=== PATIENT | female | born 1940 | race Caucasian/White ===

== ENCOUNTER 2017-11-08 10:10 | Inpatient (IN) | payer OTHER ==
[~2017-11-08] VITALS: Ht 167.6 cm; Wt 83.9 kg
[2017-11-08 10:13] VITALS: BP 138/62
[2017-11-08] MEDS ORDERED: RIVA15TA1 PO (10:40)
[2017-11-08] MEDS ORDERED: ROPI0.5T PO (10:40)
[2017-11-08] MEDS ORDERED: POTA10TE30 PO (10:40)
[2017-11-08] MEDS ORDERED: ALLO100T21 PO (10:40)
[2017-11-08] MEDS ORDERED: CALC500C17 PO (10:40)
[2017-11-08] MEDS ORDERED: INSU100S22 SC (10:40)
[2017-11-08] MEDS ORDERED: FERR325E14 PO (10:40)
[2017-11-08] MEDS ORDERED: FURO-570 PO (10:40)
[2017-11-08] MEDS ORDERED: MAGN400S60 PO (10:40)
[2017-11-08] MEDS ORDERED: BISA5ECT43 RC (10:40)
[2017-11-08] MEDS ORDERED: MELA5TAB5 PO (10:40)
[2017-11-08] MEDS ORDERED: LISI10TA11 PO (10:40)
[2017-11-08] MEDS ORDERED: LINA5TAB PO (10:40)
[2017-11-08] MEDS ORDERED: ATOR10TA PO (10:40)
[2017-11-08] MEDS ORDERED: ACET-2619 PO (10:40)
[2017-11-08] MEDS ORDERED: METO25TE2 PO (10:40)
[2017-11-08] MEDS ORDERED: CALC-53 PO (10:40)
[2017-11-08] MEDS ORDERED: SYN.05 PO (10:40)
[2017-11-08 10:49] LABS: BASOPHILS % (AUTO) 0.4 % (0.0-2.0); EOSINOPHILS # (AUTO) 0.2 K/uL (0-0.4); EOSINOPHILS % (AUTO) 2.3 % (0.0-4.0); HEMOGLOBIN 12.4 g/dL (12.0-16.0); LYMPHOCYTES # (AUTO) 1.2 K/uL (2.5-16.5); LYMPHOCYTES % (AUTO) 13.3 % (20.5-51.1); MEAN CORPUSCULAR HEMOGLOBIN 30 pg (27-31); MEAN CORPUSCULAR HGB CONC 33 g/dL (33-37); MONOCYTES # (AUTO) 0.6 K/uL (0.8-1.0); MONOCYTES % (AUTO) 6.8 % (1.7-9.3); NEUTROPHILS # (AUTO) 7.1 K/uL (1.8-7.7); NEUTROPHILS % (AUTO) 77.2 % (42.2-75.2); PLATELET COUNT (AUTO) 181 K/uL (140-450); RED BLOOD CELL COUNT(AUTO) 4.17 MIL/uL (4.20-5.40); RED CELL DISTRIBUTION WIDTH 15.4 % (11.6-13.7); WHITE BLOOD COUNT (AUTO) 9.2 K/uL (4.8-10.8)
[2017-11-08 11:05] LABS: PROTHROMBIN TIME 13.3 secs (10.8-13.4)
[2017-11-08 11:06] LABS: ANION GAP 5.9 (8-16); CARBON DIOXIDE 29.7 mmol/L (21-32); CHLORIDE 101 mmol/L (98-107); CREATININE 1.7 mg/dL (0.6-1.3); GLUCOSE 163 mg/dL (74-106); POTASSIUM 3.6 mmol/L (3.5-5.1); SODIUM SERUM 133 mmol/L (136-145); UREA NITROGEN, BLOOD 40 mg/dL (7-18)
[2017-11-08 11:16] LABS: ALBUMIN 3.5 g/dL (3.4-5.0); ASPARTATE AMINOTRANSFERASE 24 U/L (15-37); TOTAL BILIRUBIN 0.7 mg/dL (0.0-1.0)
[2017-11-08] MEDS ORDERED: cefTRIAXone 1,000 MG VIAL ONE (12:39)
[2017-11-08 13:45] LABS: APPEARANCE,URINE HAZY (CLEAR); BILIRUBIN,URINE NEGATIVE (NEGATIVE); BLOOD, URINE TRACE-L (NEGATIVE); COLOR,URINE YELLOW (YELLOW); LEUKOCYTE ESTERASE ,URINE 1+ (NEGATIVE); NITRITE, URINE POSITIVE (NEGATIVE); UGLUCOSE NEGATIVE (NEGATIVE)
[2017-11-08] MEDS: POTASSIUM CHL 20 MEQ/NACL 0.9% 1,000 ML IV SCH (13:45)
[2017-11-08 13:59] LABS: RBC,URINE 0-5 (RARE) /HPF (0-5); WBC,URINE 16-25 (MOD) /HPF (0-5)
[2017-11-08] MEDS ORDERED: FAMOTIDINE 20 MG TAB PO SCH (13:59)
[2017-11-08] MEDS ORDERED: DEXTROSE 50% 50 ML SYR IVP PRN (16:10)
[2017-11-08] MEDS: BLOOD GLUCOSE MONITORING 1 DEV DEV FS SCH ×2 (16:30→21:48)
[2017-11-08 18:45] VITALS: BP 133/62
[2017-11-08 20:00] VITALS: BP 122/69
[2017-11-08] MEDS ORDERED: INSULIN GLARGINE HUM REC ANLOG U SCH (21:00)
[2017-11-08] MEDS ORDERED: NON-FORMULARY ITEM (Melatonin (Melatonin) 3 MG) PO SCH (21:00)
[2017-11-08] MEDS ORDERED: INSULIN LANTUS 100 UNITS/ML 10 ML VIAL SUBQ SCH (21:00)
[2017-11-08] MEDS: METOPROLOL 25 MG TAB PO SCH (21:30)
[2017-11-08] MEDS: rOPINIRole 1 MG TAB PO SCH (21:30)
[2017-11-08] MEDS: ACETAMINOPHEN 325 MG TAB PO PRN (21:31)
[2017-11-08] MEDS ORDERED: ZOLPIDEM 5 MG TAB PO ONE (23:10)
[2017-11-09] VITALS: BP 138/70
[2017-11-09] MEDS: POTASSIUM CHL 20 MEQ/NACL 0.9% 1,000 ML IV SCH ×3 (02:15→20:42)
[2017-11-09 04:00] VITALS: BP 126/60
[2017-11-09] MEDS: LEVOTHYROXINE 0.05 MG TAB PO SCH (06:00)
[2017-11-09] MEDS: BLOOD GLUCOSE MONITORING 1 DEV DEV FS SCH ×4 (06:02→20:39)
[2017-11-09] MEDS: INSULIN LISPRO SLIDING SCALE 100 UNITS/ML VIAL SUBQ PRN ×4 (06:24→21:05)
[2017-11-09 07:52] VITALS: BP 130/64
[2017-11-09] MEDS: ATORVASTATIN 20 MG TAB PO SCH (08:20)
[2017-11-09] MEDS: LISINOPRIL 10 MG TAB PO SCH (08:20)
[2017-11-09] MEDS: METOPROLOL 25 MG TAB PO SCH ×2 (08:21→20:40)
[2017-11-09] MEDS: ALLOPURINOL 100 MG TAB PO SCH (08:22)
[2017-11-09] MEDS: RIVAROXABAN 15 MG TAB PO SCH (08:22)
[2017-11-09 08:43] LABS: BASOPHILS % (AUTO) 0.3 % (0.0-2.0); EOSINOPHILS # (AUTO) 0.3 K/uL (0-0.4); EOSINOPHILS % (AUTO) 3.4 % (0.0-4.0); HEMATOCRIT 38.4 % (36-48); HEMOGLOBIN 12.6 g/dL (12.0-16.0); LYMPHOCYTES # (AUTO) 1.5 K/uL (2.5-16.5); LYMPHOCYTES % (AUTO) 19.4 % (20.5-51.1); MEAN CORPUSCULAR HEMOGLOBIN 30 pg (27-31); MEAN CORPUSCULAR HGB CONC 33 g/dL (33-37); MEAN CORPUSCULAR VOLUME 91.7 fL (80-94); MONOCYTES # (AUTO) 0.6 K/uL (0.8-1.0); MONOCYTES % (AUTO) 7.1 % (1.7-9.3); NEUTROPHILS # (AUTO) 5.4 K/uL (1.8-7.7); NEUTROPHILS % (AUTO) 69.8 % (42.2-75.2); PLATELET COUNT (AUTO) 191 K/uL (140-450); RED BLOOD CELL COUNT(AUTO) 4.18 MIL/uL (4.20-5.40); RED CELL DISTRIBUTION WIDTH 15.2 % (11.6-13.7); WHITE BLOOD COUNT (AUTO) 7.7 K/uL (4.8-10.8)
[2017-11-09] MEDS ORDERED: NON-FORMULARY ITEM (Linagliptin (Tradjenta) 5 MG) PO SCH (09:00)
[2017-11-09 09:30] LABS: ALBUMIN 3.5 g/dL (3.4-5.0); ANION GAP 10.6 (8-16); ASPARTATE AMINOTRANSFERASE 25 U/L (15-37); CARBON DIOXIDE 31.3 mmol/L (21-32); CHLORIDE 105 mmol/L (98-107); CREATININE 1.5 mg/dL (0.6-1.3); GLUCOSE 140 mg/dL (74-106); POTASSIUM 3.9 mmol/L (3.5-5.1); SODIUM SERUM 143 mmol/L (136-145); TOTAL BILIRUBIN 0.7 mg/dL (0.0-1.0); UREA NITROGEN, BLOOD 38 mg/dL (7-18)
[2017-11-09 11:57] VITALS: BP 115/64
[2017-11-09 16:00] VITALS: BP 138/77
[2017-11-09 20:00] VITALS: BP 144/66
[2017-11-09] MEDS: rOPINIRole 1 MG TAB PO SCH (20:41)
[2017-11-09] MEDS: INSULIN LANTUS 100 UNITS/ML 10 ML VIAL SUBQ SCH (20:43)
[2017-11-09] MEDS: ZOLPIDEM 5 MG TAB PO PRN (21:38)
[2017-11-09] MEDS: ACETAMINOPHEN 325 MG TAB PO PRN (21:41)
[2017-11-10] VITALS: BP 127/53
[2017-11-10 04:00] VITALS: BP 142/61
[2017-11-10] MEDS: BLOOD GLUCOSE MONITORING 1 DEV DEV FS SCH ×4 (05:51→20:26)
[2017-11-10] MEDS: LEVOTHYROXINE 0.05 MG TAB PO SCH (05:52)
[2017-11-10] MEDS: ACETAMINOPHEN 325 MG TAB PO PRN ×2 (05:52→20:25)
[2017-11-10] MEDS: INSULIN LISPRO SLIDING SCALE 100 UNITS/ML VIAL SUBQ PRN ×4 (06:01→20:32)
[2017-11-10 08:00] VITALS: BP 186/69
[2017-11-10] MEDS: RIVAROXABAN 15 MG TAB PO SCH (08:28)
[2017-11-10] MEDS: ATORVASTATIN 20 MG TAB PO SCH (08:29)
[2017-11-10] MEDS: LISINOPRIL 10 MG TAB PO SCH (08:29)
[2017-11-10] MEDS: ALLOPURINOL 100 MG TAB PO SCH (08:30)
[2017-11-10] MEDS: METOPROLOL 25 MG TAB PO SCH ×2 (08:30→20:24)
[2017-11-10 12:00] VITALS: BP 142/77
[2017-11-10 16:00] VITALS: BP 129/63
[2017-11-10] MEDS: POTASSIUM CHL 20 MEQ/NACL 0.9% 1,000 ML IV SCH (16:32)
[2017-11-10 20:00] VITALS: BP 163/67
[2017-11-10] MEDS: ZOLPIDEM 5 MG TAB PO PRN (20:25)
[2017-11-10] MEDS: rOPINIRole 1 MG TAB PO SCH (20:26)
[2017-11-10] MEDS: INSULIN LANTUS 100 UNITS/ML 10 ML VIAL SUBQ SCH (20:32)
[2017-11-11] VITALS: BP 153/65
[2017-11-11 04:00] VITALS: BP 143/69
[2017-11-11] MEDS: LEVOTHYROXINE 0.05 MG TAB PO SCH (06:16)
[2017-11-11] MEDS: INSULIN LISPRO SLIDING SCALE 100 UNITS/ML VIAL SUBQ PRN ×2 (06:16→13:06)
[2017-11-11] MEDS: ACETAMINOPHEN 325 MG TAB PO PRN (06:30)
[2017-11-11] MEDS: BLOOD GLUCOSE MONITORING 1 DEV DEV FS SCH ×2 (06:31→11:30)
[2017-11-11] MEDS: POTASSIUM CHL 20 MEQ/NACL 0.9% 1,000 ML IV SCH (07:44)
[2017-11-11 08:00] VITALS: BP 144/72
[2017-11-11] MEDS: ALLOPURINOL 100 MG TAB PO SCH (08:45)
[2017-11-11] MEDS: METOPROLOL 25 MG TAB PO SCH (08:46)
[2017-11-11] MEDS: ATORVASTATIN 20 MG TAB PO SCH (08:46)
[2017-11-11] MEDS: LISINOPRIL 10 MG TAB PO SCH (08:47)
[2017-11-11] MEDS: RIVAROXABAN 15 MG TAB PO SCH (08:52)
[2017-11-11 12:00] VITALS: BP 151/68
== END 2017-11-11 15:40 | disposition home or self-care (01) | DRG 689 ==
LOC: MED 10:10 → MTU 13:40 → OBSVTOIN 11-09 13:44
PROVIDERS: ADMIT Family Medicine; ATTEND Family Medicine
DX: N39.0 Urinary tract infection, site not specified (principal); G93.41 Metabolic encephalopathy; N18.4 Chronic kidney disease, stage 4 (severe); I48.91 Unspecified atrial fibrillation; E87.1 Hypo-osmolality and hyponatremia; E11.22 Type 2 diabetes mellitus with diabetic chronic kidney disease; Z66 Do not resuscitate; E78.5 Hyperlipidemia, unspecified; I12.9 Hypertensive chronic kidney disease with stage 1 through stage 4 chronic kidney disease, or unspecified chronic kidney disease; B95.8 Unspecified staphylococcus as the cause of diseases classified elsewhere; Z79.4 Long term (current) use of insulin; Z79.899 Other long term (current) drug therapy; Z90.710 Acquired absence of both cervix and uterus; Z90.49 Acquired absence of other specified parts of digestive tract; Z87.891 Personal history of nicotine dependence
CPT/HCPCS: 96365; 99218; 99285; G0378; 36415; 71045; 80053; 81001; 82550; 82553; 82948; 83605; 83880; 84484; 85025; 85610; 85730; 87040; 87081; 87086; 87186; 93005; 97110; 97116; 97530; C1758; J0696; J1815; J7030; J7060; Q0092

== ENCOUNTER 2018-03-13 22:59 | Inpatient (IN) | payer OTHER ==
[~2018-03-13] VITALS: Ht 167.6 cm; Wt 82.6 kg
[2018-03-13 22:59] VITALS: BP 122/49
[~2018-03-13 22:59] MED LIST: ACET-2619 PO; ALLO100T21 PO; ATOR10TA PO; BISA5ECT43 RC; CALC-53 PO; CALC500C17 PO; FERR325E14 PO; FURO-570 PO; INSU100S22 SC; LINA5TAB PO; LISI10TA11 PO; MAGN400S60 PO; MELA5TAB5 PO; METO25TE2 PO; POTA10TE30 PO; RIVA15TA1 PO; ROPI0.5T PO; SYN.05 PO
--- NOTE | 2018-03-13 22:59 | NUR ---
PT DELVIS ALS. TAKEN TO BED 1
--- NOTE | 2018-03-13 23:00 | NUR ---
BIBA FROM [facility] FOR N/V SINCE 2129, AND CHEST DISCOMFORT. ABD IS ROUND, SOFT, ACTIVE BS X4, NON TENDER. PT IS AWAKE AND ACTING APPROPRIATE, NO ACTIVE VOMITING AT THIS TIME. PT HAS GENERALIZED WEAKNESS. BL ANKLES HAVE +1 EDEMA, ALSO DARKENING OF BLE SKIN, SKIN TO AREA, IS WARM DRY AND INTACT. COMFORT NEEDS MET AT THIS TIME. ER MD AWARE OF PT STATUS.
[2018-03-13] MEDS ORDERED: NACL 0.9% 500 ML IV SCH (23:11)
[2018-03-13] MEDS ORDERED: NACL 0.9% 500 ML IV ONE (23:15)
--- NOTE | 2018-03-13 23:32 | NUR ---
Dr. Martinez evaluating patient at bedside.
[2018-03-13] MEDS ORDERED: ONDANSETRON 4 MG/2 ML VIAL IVP ONE (23:35)
[2018-03-13] MEDS ORDERED: fentaNYL 0.05 MG/ML VIAL IVP ONE (23:35)
[2018-03-13 23:45] LABS: BASOPHILS # (AUTO) 0.1 K/uL (0.00-0.22); BASOPHILS % (AUTO) 0.4 % (0.0-2.0); EOSINOPHILS # (AUTO) 0.3 K/uL (0-0.4); EOSINOPHILS % (AUTO) 2.1 % (0.0-4.0); HEMOGLOBIN 12.1 g/dL (12.0-16.0); LYMPHOCYTES # (AUTO) 0.8 K/uL (2.5-16.5); MEAN CORPUSCULAR HEMOGLOBIN 31 pg (27-31); MEAN CORPUSCULAR HGB CONC 33 g/dL (33-37); MEAN CORPUSCULAR VOLUME 94.3 fL (80-94); MONOCYTES # (AUTO) 0.9 K/uL (0.8-1.0); MONOCYTES % (AUTO) 5.3 % (1.7-9.3); NEUTROPHILS # (AUTO) 14.2 K/uL (1.8-7.7); NEUTROPHILS % (AUTO) 87.1 % (42.2-75.2); PLATELET COUNT (AUTO) 169 K/uL (140-450); RED BLOOD CELL COUNT(AUTO) 3.92 MIL/uL (4.20-5.40); RED CELL DISTRIBUTION WIDTH 14.9 % (11.6-13.7)
[2018-03-13 23:56] LABS: WHITE BLOOD COUNT (AUTO) 16.3 K/uL (4.8-10.8)
[2018-03-13 23:57] LABS: LYMPHOCYTES % (AUTO) 5.1 % (20.5-51.1)
[2018-03-13 23:58] LABS: CARBON DIOXIDE 30.1 mmol/L (21-32); CHLORIDE 105 mmol/L (98-107); CREATININE 1.5 mg/dL (0.6-1.3); GLUCOSE 88 mg/dL (74-106); POTASSIUM 4.1 mmol/L (3.5-5.1); SODIUM SERUM 139 mmol/L (136-145); UREA NITROGEN, BLOOD 42 mg/dL (7-18)
[2018-03-14 00:05] LABS: PROTHROMBIN TIME 11.3 secs (10.8-13.4)
[2018-03-14 00:11] LABS: ALBUMIN 3.3 g/dL (3.4-5.0); ASPARTATE AMINOTRANSFERASE 47 U/L (15-37); TOTAL BILIRUBIN 0.4 mg/dL (0.0-1.0)
--- NOTE | 2018-03-14 00:25 | NUR ---
PT ASSISTED TO BEDSIDE COMMODE, ASSISSTED BACK TO BED, COMORT NEEDS MET AT THIS TIME, WILL CONTINUE TO MONITOR.
[2018-03-14 00:44] LABS: APPEARANCE,URINE CLEAR (CLEAR); BILIRUBIN,URINE NEGATIVE (NEGATIVE); BLOOD, URINE NEGATIVE (NEGATIVE); COLOR,URINE YELLOW (YELLOW); LEUKOCYTE ESTERASE ,URINE NEGATIVE (NEGATIVE); NITRITE, URINE NEGATIVE (NEGATIVE); PH,URINE 6.5 (5.0-9.0); UGLUCOSE NEGATIVE (NEGATIVE)
[2018-03-14] MEDS ORDERED: PANTOPRAZOLE 40 MG INJ VIAL IVP ONE (00:55)
--- NOTE | 2018-03-14 01:30 | NUR ---
PT SLEEPING IN BED, VSS, WILL CONTINUE TO MONITOR.
--- NOTE | 2018-03-14 02:20 | NUR ---
Patient will be admitted to care of DR JOHSI. Admited to TELE. Will go to room 111-B. Belongings list completed. Report to CANDELARIO BOOTH.
--- NOTE | 2018-03-14 02:30 | NUR ---
ADMITTED THIS 78 YEAR OLD FEMALE FROM ER PER AUNDREA WITH CC OF VOMITING, TRANSFER TO BED, ASSESSMENT DONE, VITAL SIGNS STALE, UNCONTROLLED A-FIB ON TELE, DENIES NAUSEA AT THIS TIME, COMPLAINING OF RT HIP PAIN, WILL MEDICATE PRN, SKIN INTACT, ORIENTED TO ROOM AND CALL LIGHT, PT INCONTINENT OF URINE MOST OF THE TIME, CAN USE BEDSIDE COMMODE WITH MAXIMUM ASSIST BUT PREFER DIAPER AT THIS TIME, SAFETY MEASURES IN PLACE, SIDE RAILS UP AND BED ALARM ON, CALL LIGHT WITHIN REACH.
[2018-03-14] MEDS ORDERED: ONDANSETRON 4 MG/2 ML VIAL IVP PRN (02:45)
--- NOTE | 2018-03-14 02:50 | NUR ---
CALLED DR JOSHI FOR ORDERS, ORDERS RECEIVED, CARRIED OUT, PT PROVIDED WITH TUNA SANDWICH AND APPLE JUICE, CONSUMED 90%, NO N/V NOTED, ALL NEEDS ATTENDED.
[2018-03-14 03:00] VITALS: BP 109/40
[2018-03-14] MEDS: ACETAMINOPHEN EXTRA STRENGTH 500 MG TAB PO PRN ×2 (03:20→09:45)
[2018-03-14] MEDS: ZOLPIDEM 5 MG TAB PO PRN ×2 (03:20→21:09)
[2018-03-14 04:00] VITALS: BP 102/42
--- NOTE | 2018-03-14 04:00 | NUR ---
PT SLEEPING, EASILY AROUSABLE, VITAL SIGNS STABLE, UNCONTROLLED A-FIB ON TELE, NO DISTRESS NOTED, CAN REPOSITION SELF FROM SIDE TO SIDE, MONITORED CLOSELY.
[2018-03-14] MEDS ORDERED: ACETAMINOPHEN 325 MG TAB PO PRN (07:00)
[2018-03-14] MEDS ORDERED: MAGNESIUM HYDROXIDE 2400 MG/30 ML UDC PO PRN (07:00)
[2018-03-14] MEDS ORDERED: LEVOTHYROXINE 0.05 MG TAB PO SCH (07:19)
--- NOTE | 2018-03-14 07:23 | NUR ---
PT SLEEPING, AROUSABLE, BEDSIDE REPORT GIVEN TO CANDELARIO PITT FOR CONTINUITY OF CARE.
[2018-03-14] MEDS ORDERED: BISACODYL 10 MG SUPP RC PRN (07:25)
--- NOTE | 2018-03-14 07:25 | NUR ---
RECEIVED REPORT FROM AGRONOMY INSTRUCTOR NURSE, PATIENT IS IN BED SLEEPING, AROUSABLE TO NAME, IV PLACED IN LEFT HAND WITH A 22 GAUGE, SALINE LOCK, PATIENT IS WHEELCHAIR BOUND, SAFETY PRECAUTIONS IN PLACE. PATIENTS BED IS IN LOWEST POSITION, CALL VERNON WITHIN REACH,WILL CONTINUE TO MONITOR PATIENT.
[2018-03-14] MEDS ORDERED: DEXTROSE 50% 50 ML SYR IVP PRN (07:30)
[2018-03-14] MEDS: BLOOD GLUCOSE MONITORING 1 DEV DEV FS SCH ×4 (07:44→20:46)
[2018-03-14 08:00] VITALS: BP 104/43
--- NOTE | 2018-03-14 08:43 | NUR ---
PATIENT HAS BEEN SCREENED AND CATEGORIZED HIGH NUTRITION RISK. PATIENT WILL BE SEEN WITHIN 1-2 DAYS OF ADMISSION. 03/14/18 03/15/[address]
[2018-03-14 08:55] LABS: CREATINE KINASE MB 1.6 ng/mL (0-3.6)
--- NOTE | 2018-03-14 08:55 | NUR ---
CM NOTE PATIENT HAS SECONDARY IEHP. PER IEHP DC ACADEMIC SUPPORT COORDINATOR BOSSMAN GRANT# [phone] FOR [facility] AUTH# [id number]
[2018-03-14] MEDS: METOPROLOL 25 MG TAB PO SCH ×2 (09:00→20:59)
--- NOTE | 2018-03-14 09:00 | NUR ---
PATIENT IN BED EATING BREAKFAST, AAOX4, PATIENT COMPLAINS OF MINIMAL HIP PAIN, WILL ADMINISTER MEDICATION, PATIENT VITALS TAKEN, NO RESPIRATORY DISTRESS NOTED, ALL SAFETY PRECAUTIONS ARE IN PLACE, PATIENTS BED IN LOWEST POSITION, CALL LIGHT WITHIN REACH, WILL CONTINUE TO MONITOR.
[2018-03-14] MEDS: RIVAROXABAN 15 MG TAB PO SCH (09:26)
[2018-03-14] MEDS: ATORVASTATIN 20 MG TAB PO SCH (09:32)
[2018-03-14] MEDS: ALLOPURINOL 100 MG TAB PO SCH (09:33)
--- NOTE | 2018-03-14 09:45 | NUR ---
ADMINISTERED PATIENTS MEDICATIONS PER MAR, HELD BP MEDICATION DUE TO BP OF 104/43, PATIENT TOLERATED MEDICATION WELL, ALL SAFETY PRECAUTIONS ARE IN PLACE, WILL CONTINUE TO MONITOR.
[2018-03-14 12:00] VITALS: BP 110/43
--- NOTE | 2018-03-14 13:00 | NUR ---
PATIENT IN BED RESTING, NO PAIN OR DISTRESS NOTED AT THIS TIME, WILL CONTINUE TO MONITOR.
--- NOTE | 2018-03-14 14:58 | NUR ---
03/14/18 RD INITIAL ASSESSMENT COMPLETED PLEASE REFER TO NUTRITION ASSESSMENT UNDER CARE ACTIVITY FOR ESTIMATED NUTRITIONAL NEEDS. 1. CONTINUE CCHO 60 GM SOFT DIET TOLERATED 2. ENCOURAGED TO INCREASE PO INTAKE 3. IF PO INTAKE <50% RECOMMEND GLUCERNA QD 4. RD TO FOLLOW-UP 3-5 DAYS, MODERATE RISK RADHA BARRY RD
--- NOTE | 2018-03-14 15:31 | NUR ---
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
[2018-03-14 16:00] VITALS: BP 126/58
--- NOTE | 2018-03-14 16:00 | NUR ---
PATIENT IN BED RESTING, OBTAINED PATIENTS VITAL SIGNS, PATIENT SHOWS NO SIGNS OR SYMPTOMS OF PAIN OR DISTRESS, PATIENT DENIES PAIN, WILL CONTINUE TO MONITOR.
[2018-03-14 16:49] LABS: CREATINE KINASE MB 1.6 ng/mL (0-3.6)
[2018-03-14] MEDS: INSULIN LISPRO SLIDING SCALE 100 UNITS/ML VIAL SUBQ PRN ×2 (17:23→20:48)
--- NOTE | 2018-03-14 19:22 | NUR ---
ENDORSED PT TO MANUFACTURED BUILDINGS SUPERVISOR NURSE FOR CONTINUITY OF CARE. PT STABLE AT THIS TIME.
--- NOTE | 2018-03-14 19:35 | NUR ---
RECEIVED FROM AM RN IN BED AWAKE AND EATING DINNER. VERBALIZES SIMPLE NEEDS. NO SOB. INDEPENDENT IN FEEDING SELF NOTED. NO COMPLAINTS OF VOMITING OR NAUSEA THIS AM SHIFT REPORTED. IVF SITE TO #22 . PATENT. CALL LIGHT WITH IN REACH AND CARE PLANS FOR THE NIGHT DISCUSSED WITH HER. BED ALARM ON. NEEDS WILL BE ANTICIPATED AND WILL BE MET. AFEBRILE. Addendum: 03/14/18 at 2000 by Amy Escobedo RN ABOVE NOTES TAKEN BY HENRI OSULLIVAN RN.
[2018-03-14 20:48] VITALS: BP 120/54
[2018-03-14] MEDS ORDERED: INSULIN GLARGINE HUM REC ANLOG U SCH (21:00)
[2018-03-14] MEDS ORDERED: INSULIN LANTUS 100 UNITS/ML 10 ML VIAL SUBQ SCH (21:00)
[2018-03-14] MEDS ORDERED: NON-FORMULARY ITEM (Melatonin (Melatonin) 3 MG) PO SCH (21:00)
[2018-03-14] MEDS ORDERED: rOPINIRole 1 MG TAB PO SCH (21:00)
--- NOTE | 2018-03-14 21:13 | NUR ---
PT. AWAKE AND ALERT. ABLE TO VERBALIZE NEEDS WELL. NO SOB. PT. REQUESTED FOR PAIN RELIEVER FOR CHRONIC PAIN. MEDICATED REQUESTED. USES CALL LIGHT FOR HELP. BED ALARM ON.
[2018-03-15] VITALS: BP 110/56
--- NOTE | 2018-03-15 | NUR ---
PT. SLEEPING. CALL LIGHT WITH IN REACH. NO SOB. BED ALARM ON. TELEMETRY MONITORING.
--- NOTE | 2018-03-15 03:13 | NUR ---
PT. WOKE UP AT THIS TIME AND ASKED TO USE BEDSIDE COMMODE TO URINATE. ASSISTED. ABLE TO URINATE ON BSC. ASSISTED BACK TO BED. CALL LIGHT WITH IN REACH. NO SOB. DENIES PAIN AT THIS TIME. PROVIDED WITH WARM BLANKET REQUESTED.
[2018-03-15 04:38] VITALS: BP 106/59
[2018-03-15] MEDS: BLOOD GLUCOSE MONITORING 1 DEV DEV FS SCH ×2 (06:17→11:44)
[2018-03-15] MEDS ORDERED: LEVOTHYROXINE 0.05 MG TAB PO SCH (06:30)
[2018-03-15 07:20] LABS: BASOPHILS % (AUTO) 0.3 % (0.0-2.0); EOSINOPHILS # (AUTO) 0.5 K/uL (0-0.4); EOSINOPHILS % (AUTO) 5.1 % (0.0-4.0); HEMATOCRIT 32.5 % (36-48); HEMOGLOBIN 10.9 g/dL (12.0-16.0); LYMPHOCYTES # (AUTO) 1.6 K/uL (2.5-16.5); LYMPHOCYTES % (AUTO) 17.5 % (20.5-51.1); MEAN CORPUSCULAR HEMOGLOBIN 32 pg (27-31); MEAN CORPUSCULAR HGB CONC 34 g/dL (33-37); MONOCYTES # (AUTO) 0.6 K/uL (0.8-1.0); MONOCYTES % (AUTO) 6.9 % (1.7-9.3); NEUTROPHILS # (AUTO) 6.2 K/uL (1.8-7.7); NEUTROPHILS % (AUTO) 70.2 % (42.2-75.2); PLATELET COUNT (AUTO) 145 K/uL (140-450); RED BLOOD CELL COUNT(AUTO) 3.42 MIL/uL (4.20-5.40); RED CELL DISTRIBUTION WIDTH 14.9 % (11.6-13.7); WHITE BLOOD COUNT (AUTO) 8.9 K/uL (4.8-10.8)
--- NOTE | 2018-03-15 07:20 | NUR ---
PT. KEPT CLEAN,DRY AND COMFORTABLE. NO RESTLESSNESS RT PAIN THIS SHIFT. NEEDS ANTICIPATED AND MET. TOTAL CARE. ENDORSED TO THE NEXT RN FOR CONTINUITY OF CARE.
--- NOTE | 2018-03-15 07:21 | NUR ---
RECEIVED REPORT FROM PEDIATRIC ASSOCIATE NURSE AT BEDSIDE FOR CONTINUITY OF CARE. PATIENT AWAKE AND ALERT, ABLE TO MAKE NEEDS KNOWN. NO SIGNS OF DISTRESS OR SOB ON ROOM AIR. IV TO LEFT HAND #22G SALINE LOCKED. PATIENT REQUESTED TO BE DISCHARGED BACK TO HER HOME, STATING "I'M BETTER". PATIENT HAD NO BOUT OF VOMITTING DURING THE NIGHT AND DOES NOT FEEL NAUSEOUS. UPDATED BOARD. INFORMED PATIENT THAT DR. JOSHI WILL COME IN TODAY TO SEE HER AND WE WILL WAIT FOR HIS ORDERS. PATIENT REPEATED THAT SHE WANTED TO GO HOME BUT RELUCTANTLY VERBALIZED UNDERSTANDING. PATIENT DENIES PAIN. SAFETY PRECAUTION IN PLACE, BED IN LOWEST SETTING, BED ALARM ON, CALL LIGHT AND TABLE WITHIN EASY REACH. WILL CONTINUE TO MONITOR PATIENT.
[2018-03-15 07:35] LABS: ANION GAP 6.7 (8-16); ASPARTATE AMINOTRANSFERASE 30 U/L (15-37); CARBON DIOXIDE 28.4 mmol/L (21-32); CHLORIDE 107 mmol/L (98-107); CREATININE 1.3 mg/dL (0.6-1.3); GLUCOSE 95 mg/dL (74-106); POTASSIUM 4.1 mmol/L (3.5-5.1); SODIUM SERUM 138 mmol/L (136-145); TOTAL BILIRUBIN 0.6 mg/dL (0.0-1.0); UREA NITROGEN, BLOOD 32 mg/dL (7-18)
[2018-03-15 08:00] VITALS: BP 129/74
[2018-03-15] MEDS: ATORVASTATIN 20 MG TAB PO SCH (08:15)
[2018-03-15] MEDS: ACETAMINOPHEN EXTRA STRENGTH 500 MG TAB PO PRN (08:15)
[2018-03-15] MEDS: ALLOPURINOL 100 MG TAB PO SCH (08:15)
--- NOTE | 2018-03-15 08:15 | NUR ---
ORDERED MEDICATIONS GIVEN. PATIENT TOLERATED THEM WELL. REQUESTED INFORMATION ABOUT DISCHARGE BECAUSE "I WANT TO GO HOME!". RN VERBALIZED UNDERSTANDING AND STATED THAT DISCHARGE CAN BE DISCUSSED WHEN DR. JOSHI COMES IN TO SEE HR. LAINE VERBALIZED UNDERSTANDING.
[2018-03-15] MEDS: METOPROLOL 25 MG TAB PO SCH (08:16)
[2018-03-15] MEDS: RIVAROXABAN 15 MG TAB PO SCH (08:18)
--- NOTE | 2018-03-15 08:25 | NUR ---
DR JOSHI IN TO SEE THE PATIENT. WILL WAIT FOR HIS ORDERS.
--- NOTE | 2018-03-15 09:18 | NUR ---
СВЕТЛАН[facility] PAS[facility] CALLED [phone], SPOKE TO LEIGH, PT'S ROOM NUMBER IS 118D, [facility] ARRANGED FOR 11:30AM MATCHBOOK ASSEMBLER WITH WHEELCHAIR.
--- NOTE | 2018-03-15 10:02 | NUR ---
CALLED [facility] AT , GAVE REPORT TO CANDELARIO ANGULO. PATIENT WILL BE GOING TO ROOM 118D. ALSO CALLED PATIENT'S NIECE JASIEL AT [phone] TO INFORM HER THAT PATIENT WILL BE TRANSPORTING BACK TO [facility]. SHE VERBALIZED UNDERSTANDING.
--- NOTE | 2018-03-15 11:10 | NUR ---
DISCHARGE INSTRUCTION AND EDUCATION GIVEN TO PATIENT. PATIENT VERBALIZED UNDERSTANDING AND SIGNED ALL PAPERWORK. IV REMOVED, IV CATHETER INTACT, MINIMAL BLEEDIGN NOTED. ID BANDS CUT, TELE MONITOR REMOVED. PATIENT CHANGED INTO TRANSFER GOWN TO BE READY TO GO BACK TO [facility].
[2018-03-15 11:30] VITALS: BP 122/49
--- NOTE | 2018-03-15 11:50 | NUR ---
PATIENT WHEELED OFF FLOOR WITH [facility] BEING TRANSFERRED TO [facility]. PATIENT TOOK ALL HER BELONGINGS WITH HER. PATIENT IN STABLE CONDITION.
--- NOTE | 2018-03-15 12:12 | NUR ---
CALLED [facility] AND SPOKE TO LEIGH, ENDORSED PATIENT'S BLOOD SUGAR CHECK, IT WAS 176, NO COVERAGE GIVEN BECAUSE LUNCH HAD NOT ARRIVED YET.SHE VERBALIZED UNDERSTANDING.
--- NOTE | 2018-03-15 14:45 | NUR ---
RECEIVED CALL FROM LAB, PATIENT MRSA POSITIVE IN NARES. CALLED CANDELARIO ABRAHAM AT [facility], FAXED OVER REPORT. FAX # [phone].
== END 2018-03-15 11:50 | DRG 392 ==
LOC: MED 22:59 → MTU 03-14 01:46
PROVIDERS: ADMIT Family Medicine; ATTEND Family Medicine
DX: A08.4 Viral intestinal infection, unspecified (principal); E44.1 Mild protein-calorie malnutrition; D72.829 Elevated white blood cell count, unspecified; E11.22 Type 2 diabetes mellitus with diabetic chronic kidney disease; E78.5 Hyperlipidemia, unspecified; N18.3 Chronic kidney disease, stage 3 (moderate); I48.91 Unspecified atrial fibrillation; I12.9 Hypertensive chronic kidney disease with stage 1 through stage 4 chronic kidney disease, or unspecified chronic kidney disease; K57.30 Diverticulosis of large intestine without perforation or abscess without bleeding; M47.9 Spondylosis, unspecified; M10.9 Gout, unspecified; Z87.891 Personal history of nicotine dependence; Z79.1 Long term (current) use of non-steroidal anti-inflammatories (NSAID); Z79.899 Other long term (current) drug therapy; Z90.49 Acquired absence of other specified parts of digestive tract
CPT/HCPCS: 36415; 71045; 80053; 81003; 82550; 82553; 82948; 83605; 83690; 83880; 84484; 85025; 85610; 85730; 87040; 87081; 87086; 93005; 96361; 96374; 96375; 99285; C9113; J1815; J2405; J3010

== ENCOUNTER 2020-08-03 15:08 | Inpatient (IN) | payer OTHER, SELFPAY ==
[~2020-08-03] VITALS: Ht 170.2 cm; Wt 59.4 kg
[~2020-08-03 15:08] MED LIST changes: -BISA5ECT43 RC; +HYDR-5122 PO; -INSU100S22 SC; -LINA5TAB PO; +LIRA6SOL SC; +LOSA25TA43 PO; -MAGN400S60 PO; -MELA5TAB5 PO; +MELA5TAB6 PO; -POTA10TE30 PO; +ROC2I IV; -ROPI0.5T PO; +ROPI0.5T40 PO
--- NOTE | 2020-08-03 15:08 | NUR ---
PATIENT DELVIS BLS TO WAIT IN AMBULANCE
[2020-08-03] MEDS ORDERED: HYDROcodone/APAP 5/325 MG 1 TAB TAB PO ONE ×2 (15:10→17:55)
[2020-08-03 16:04] LABS: BASOPHILS % (AUTO) 0.4 % (0.0-2.0); EOSINOPHILS # (AUTO) 0.1 K/uL (0-0.4); EOSINOPHILS % (AUTO) 0.7 % (0.0-4.0); HEMATOCRIT 31.2 % (36-48); HEMOGLOBIN 10.5 g/dL (12.0-16.0); LYMPHOCYTES # (AUTO) 1.1 K/uL (2.5-16.5); MEAN CORPUSCULAR HEMOGLOBIN 31 pg (27-31); MEAN CORPUSCULAR HGB CONC 34 g/dL (33-37); MEAN CORPUSCULAR VOLUME 91.7 fL (80-94); MONOCYTES # (AUTO) 0.6 K/uL (0.8-1.0); MONOCYTES % (AUTO) 7.4 % (1.7-9.3); NEUTROPHILS # (AUTO) 6.2 K/uL (1.8-7.7); NEUTROPHILS % (AUTO) 77.5 % (42.2-75.2); PLATELET COUNT (AUTO) 142 K/uL (140-450); RED CELL DISTRIBUTION WIDTH 15.1 % (11.6-13.7)
[2020-08-03 16:15] VITALS: BP 150/80
[2020-08-03 16:23] LABS: ALBUMIN 3.3 g/dL (3.4-5.0); ANION GAP 11.2 (8-16); ASPARTATE AMINOTRANSFERASE 56 U/L (15-37); CHLORIDE 100 mmol/L (98-107); CREATININE 1.5 mg/dL (0.6-1.3); GLUCOSE 327 mg/dL (74-106); POTASSIUM 4.2 mmol/L (3.5-5.1); SODIUM SERUM 134 mmol/L (136-145); TOTAL BILIRUBIN 0.6 mg/dL (0.0-1.0); UREA NITROGEN, BLOOD 41 mg/dL (7-18)
[2020-08-03 16:26] LABS: PROTHROMBIN TIME 13.8 secs (10.8-13.4)
--- NOTE | 2020-08-03 16:45 | NUR ---
PT MOVED TO BED 14 IN HALLWAY.
--- NOTE | 2020-08-03 17:00 | NUR ---
PT CAME IN TO ER WITH C/O RIGHT LEG PAIN P/S FALL. PER PT, THERE WAS SOME WATER ON THE FLOOR IN HER BATHROOM AND SHE SLIPPIED AND FELL ON THE FLOOR AND HIT HER BOTTOCKS. PER EMS, THE NURSE FROM THE FACILITY STATED THAT SHE HIT HER LEG ON THE WALL. PT HAS BRUISING AND EDEMA WITH PUSS -LIKE FLUID FILLED BUMPS ON LEG. ERMD AWARE. PT IS A/OX4. NO SIGN OF DISTRESS NOTED. PT PAIN LEVEL IS 7/10. SAFETY MEASURES IN PLACE, WILL CONTINUE TO MONITOR.
[2020-08-03] MEDS ORDERED: INSULIN REGULAR, HUMAN 100 UNIT/ML VIAL SUBQ ONE (17:55)
--- NOTE | 2020-08-03 18:35 | NUR ---
PT WENT TO CT
--- NOTE | 2020-08-03 19:30 | NUR ---
RECEIVED REPORT FROM BETINA PALOMINO FOR CONTINUITY OF CARE
--- NOTE | 2020-08-03 20:48 | NUR ---
PT MOVED TO [facility]
[2020-08-03] MEDS ORDERED: ACETAMINOPHEN 325 MG TAB PO PRN (21:20)
[2020-08-03] MEDS ORDERED: NACL 0.9% 1,000 ML IV SCH (21:20)
[2020-08-03] MEDS ORDERED: ONDANSETRON 4 MG/2 ML VIAL IVP PRN (21:20)
[2020-08-03] MEDS ORDERED: DOCUSATE SODIUM 100 MG GELCAP PO PRN (21:20)
--- NOTE | 2020-08-03 21:41 | NUR ---
EKG PERFORMED IN HALLWAY BED WITH SCREEN. EKG READS ATRIAL FIBRILLATION @ 103
--- NOTE | 2020-08-03 21:48 | NUR ---
PT TAKEN TO XRAY VIA AUNDREA
--- NOTE | 2020-08-03 22:04 | NUR ---
PT RETURNED TO [facility]
[2020-08-03 22:31] LABS: CHOL/HDL RATIO 2.5 (1-4.5); FREE T4 (FREE THYROXINE) 1.24 ng/dL (0.76-1.46); MAGNESIUM 2.5 mg/dL (1.8-2.4); PHOSPHORUS 3.6 mg/dL (2.5-4.9); THYROID STIMULATING HORMONE 3.3 uIU/mL (0.34-3.74)
--- NOTE | 2020-08-04 00:47 | NUR ---
ULTRASOUND AT BEDSIDE
--- NOTE | 2020-08-04 03:00 | NUR ---
PT C/O PAIN 02/04. MORPHINE PRN GIVEN
[2020-08-04] MEDS: MORPHINE SULFATE 2 MG/ML SYR IVP PRN ×3 (03:03→21:28)
--- NOTE | 2020-08-04 04:20 | NUR ---
PT'S DIAPER CHANGER AND PERINEAL AREA CLEANED AND DRIED. PT REPOSITIONED FOR COMFORT
--- NOTE | 2020-08-04 04:38 | NUR ---
0438 MOVED TO ER BED 12 RE
--- NOTE | 2020-08-04 06:05 | NUR ---
PT RESTING IN BED, EYES CLOSED, RESPIRATIONS EVEN AND UNLABORED. CHEST RISE IS SYMMETRICAL.
[2020-08-04] MEDS: LEVOTHYROXINE 0.05 MG TAB PO SCH (06:30)
--- NOTE | 2020-08-04 07:12 | NUR ---
REPORT GIVEN TO RIRI PALOMINO FOR CONTINUITY OF CARE
--- NOTE | 2020-08-04 07:47 | NUR ---
PATIENT HAS BEEN SCREENED AND CATEGORIZED MODERATE NUTRITION RISK. PATIENT WILL BE SEEN WITHIN 3-5 DAYS OF ADMISSION. 08/06/20 - 08/08/20 CAMACHO GÓMEZ MBA, RD
--- NOTE | 2020-08-04 08:20 | NUR ---
PT RESTING IN BED QUIETLY. VSS, R/R EQUAL, AND UNLABORED. NO COMPLAINTS AT THIS TIME. WILL CONTINUE TO MONITOR.
[2020-08-04] MEDS ORDERED: CRUSHER, PILL MC ONE ×2 (08:58→21:13)
--- NOTE | 2020-08-04 09:11 | NUR ---
PT RESTING IN BED IN QUIETLY. VSS, R/R EQUAL, AND UNLABORED. NO DISTRESS VERBALIZED AT THIS TIME. SIDE RAIL X2, BED IN LOW POSITION WILL CONTINUE TO MONITOR.
[2020-08-04] MEDS: DEXT 5% / NACL 0.45% 1,000 ML IV SCH (09:15)
[2020-08-04] MEDS: LOSARTAN 25 MG TAB PO SCH (09:21)
[2020-08-04] MEDS: METOPROLOL SUCCINATE 50 MG TABER PO SCH ×2 (09:21→21:18)
[2020-08-04] MEDS: ATORVASTATIN 20 MG TAB PO SCH (09:21)
[2020-08-04] MEDS: allopurinoL 100 MG TAB PO SCH (09:22)
[2020-08-04] MEDS: lisinopriL 10 MG TAB PO SCH (09:22)
[2020-08-04 10:44] LABS: BASOPHILS % (AUTO) 0.3 % (0.0-2.0); EOSINOPHILS # (AUTO) 0.1 K/uL (0-0.4); EOSINOPHILS % (AUTO) 1.1 % (0.0-4.0); HEMATOCRIT 22.9 % (36-48); HEMOGLOBIN 7.6 g/dL (12.0-16.0); LYMPHOCYTES % (AUTO) 16.7 % (20.5-51.1); MEAN CORPUSCULAR HEMOGLOBIN 31 pg (27-31); MEAN CORPUSCULAR HGB CONC 33 g/dL (33-37); MEAN CORPUSCULAR VOLUME 91.8 fL (80-94); MONOCYTES # (AUTO) 0.6 K/uL (0.8-1.0); MONOCYTES % (AUTO) 9.6 % (1.7-9.3); NEUTROPHILS # (AUTO) 4.4 K/uL (1.8-7.7); NEUTROPHILS % (AUTO) 72.3 % (42.2-75.2); PLATELET COUNT (AUTO) 138 K/uL (140-450); RED CELL DISTRIBUTION WIDTH 14.8 % (11.6-13.7); WHITE BLOOD COUNT (AUTO) 6.1 K/uL (4.8-10.8)
[2020-08-04 10:59] LABS: ANION GAP 10.4 (8-16); CARBON DIOXIDE 27.8 mmol/L (21-32); CHLORIDE 103 mmol/L (98-107); CREATININE 1.5 mg/dL (0.6-1.3); GLUCOSE 146 mg/dL (74-106); POTASSIUM 4.2 mmol/L (3.5-5.1); SODIUM SERUM 137 mmol/L (136-145); UREA NITROGEN, BLOOD 38 mg/dL (7-18)
[2020-08-04 11:04] LABS: MAGNESIUM 2.2 mg/dL (1.8-2.4); PHOSPHORUS 3.5 mg/dL (2.5-4.9)
--- NOTE | 2020-08-04 11:50 | NUR ---
PT ACCIDENTALLY DISLODGED IV. NEW IV PLACED BY IN RIGHT FOREARM 24G BY CANDELARIO ALVARADO.
--- NOTE | 2020-08-04 12:02 | NUR ---
DR. VAUGHAN AT BEDSIDE.
--- NOTE | 2020-08-04 12:07 | NUR ---
DR. VAUGHAN STATED PT CAN BE TAKEN OFF NPO ORDER, AND PLACED ON CARDIAC/DIABETIC DIET.
--- NOTE | 2020-08-04 12:15 | NUR ---
PHOTOGRAPHS TAKEN OF PT'S RIGHT LOWER EXTREMITY. PHOTOS PLACED IN CHART.
--- NOTE | 2020-08-04 13:06 | NUR ---
PT PROVIDED LUNCH TRAY.
--- NOTE | 2020-08-04 13:16 | NUR ---
SOCIAL WORK NOTE: Patient's Orientation Unable To Assess Information Provided By JASIEL Diaz [place] Comments SW WAS UNABLE TO MEET PATIENT AT BEDSIDE TO COMPLETE ASSESSMENT. SW CONTACTED PATIENT'S NIECE/POA. Manager Integrated, Realtionship and Phone Number JASIEL UNDERWOODECE/POA [phone] DARON RASHID DAUGHTER [phone] Healthcare Power of Soap Chipper Yes Does Patient Have a POLST Yes Identifying Problems No Social Work Triggers Is A Social Work Consult Needed No Mandate Report Filed No Explanation Of Identifying Problems PATIENT IS AN 80-YEAR-OLD FEMALE ADMITTED FOR RIGHT LEG HEMATOMA. PATIENT H Admitted From Shelter Care/[facility] [phone] Pre-Admission Level Of Functioning Status Total Care Prior Resources/Services Used In Last 12 Months SNF Shelter Care Prior Resources/Service Comments PATIENT IS FDC AND ON A BED HOLD. Prior DME Walker Wheelchair Dialysis Comments N/A Patient Had Caregiver No Home Support No Caregiver Issues Financial Issues No Known Financial Issue Referral To The Financial Counselor Needed No Factors/Needs No D/C Needs Identified Pt/Rep Participated In Discharge Plan Yes Patient/Family Agress With Discharge Plan Yes Discharge Plan Comments TENTATIVE DISCHARGE PLAN IS FOR PATIENT IS TO RETURN TO [facility] Plan Status Initiated
--- NOTE | 2020-08-04 14:16 | NUR ---
PT RESTING IN BED QUIETLY. REQUESTING LIGHTS BE DIMMED TO RELAX. LIGHTS DIMMED PER REQUEST. VSS, R/R EQUAL, AND UNLABORED, SIDE RAIL X2, BED IN LOW POSITION WILL CONTINUE TO MONITOR.
--- NOTE | 2020-08-04 17:25 | NUR ---
PT STRAIGHT CATHED, FOLLOWED BY PERINEAL CARE, AND DIAPER CHANGE. URINE TAKEN TO LAB FOR PROCESSING
[2020-08-04 17:51] LABS: APPEARANCE,URINE CLEAR (CLEAR); BILIRUBIN,URINE NEGATIVE (NEGATIVE); BLOOD, URINE NEGATIVE (NEGATIVE); COLOR,URINE YELLOW (YELLOW); LEUKOCYTE ESTERASE ,URINE 1+ (NEGATIVE); NITRITE, URINE NEGATIVE (NEGATIVE); UGLUCOSE NEGATIVE (NEGATIVE)
[2020-08-04 18:21] LABS: WBC,URINE 16-25 (MOD) /HPF (0-5)
--- NOTE | 2020-08-04 19:53 | NUR ---
Report received from CANDELARIO Mckeon for continuation of care.
--- NOTE | 2020-08-04 19:54 | NUR ---
Pt sitting up in bed, locked and in lowest position, HOB elevated, side rail x2 for pt safety. Pt is eating dinner at this time.
[2020-08-04] MEDS: rOPINIRole 0.25 MG TAB PO SCH (21:00)
--- NOTE | 2020-08-04 21:15 | NUR ---
Pt c/o of 04/07 leg pain - will review PRN pain medication for administration.
--- NOTE | 2020-08-04 22:51 | NUR ---
perineal care provided. New sheet , diaper placed on pt. Pt repositioned for comfort. No acute distress noted.
[2020-08-05] MEDS: DEXT 5% / NACL 0.45% 1,000 ML IV SCH ×2 (00:29→17:37)
--- NOTE | 2020-08-05 00:37 | NUR ---
Pt resting in bed, locked and in lowest position, HOB elevated, side rail x2 for pt safety. VSS. No acute distress noted.
--- NOTE | 2020-08-05 02:38 | NUR ---
Pt resting in bed, locked and in lowest position, HOB elevated , side rail x 2 for pt safety. No acute distress noted.
--- NOTE | 2020-08-05 04:00 | NUR ---
Pt yelling for help , upon entering room patient states she wants the trash she threw on the floor picked up. Explained to pt that picking up trash is not an emergency and respectfully asked her not to scream for help unless there is an emergency.
--- NOTE | 2020-08-05 05:15 | NUR ---
Pt repositioned and new mask provided. Pt c/o of 910 leg pain. Will review PRN pain medications at this time.
[2020-08-05] MEDS: MORPHINE SULFATE 2 MG/ML SYR IVP PRN ×3 (05:29→20:29)
[2020-08-05] MEDS ORDERED: VANCOMYCIN PER PHARMACY MC PRN (06:25)
[2020-08-05] MEDS: LEVOTHYROXINE 0.05 MG TAB PO SCH (06:39)
--- NOTE | 2020-08-05 06:39 | NUR ---
Perineal care provided. New sheet, diaper , gown and blanket provided to pt.
[2020-08-05] MEDS ORDERED: VANCOMYCIN 1GM/DEXT 5% PREMIX 200 ML IV SCH (06:45)
--- NOTE | 2020-08-05 07:22 | NUR ---
Report provided to CANDELARIO Walton for transfer of care.
--- NOTE | 2020-08-05 08:51 | NUR ---
Spoke to case management at [facility]-- call back when admitting doctor makes rounds on patient [phone]
[2020-08-05] MEDS: LOSARTAN 25 MG TAB PO SCH (09:04)
[2020-08-05] MEDS: allopurinoL 100 MG TAB PO SCH (09:05)
[2020-08-05] MEDS: ATORVASTATIN 20 MG TAB PO SCH (09:05)
[2020-08-05] MEDS: METOPROLOL SUCCINATE 50 MG TABER PO SCH ×2 (09:05→21:59)
[2020-08-05] MEDS: lisinopriL 10 MG TAB PO SCH (09:05)
--- NOTE | 2020-08-05 09:29 | NUR ---
PT RESTING WITH EYES CLOSED, BREATHING EVEN AND UNLABORED. WILL CONTINUE TO MONITOR. PT FINISHED BREAKFAST
[2020-08-05 10:49] LABS: BASOPHILS % (AUTO) 0.2 % (0.0-2.0); EOSINOPHILS # (AUTO) 0.1 K/uL (0-0.4); EOSINOPHILS % (AUTO) 1.8 % (0.0-4.0); HEMATOCRIT 20.1 % (36-48); LYMPHOCYTES # (AUTO) 1.4 K/uL (2.5-16.5); LYMPHOCYTES % (AUTO) 24.4 % (20.5-51.1); MEAN CORPUSCULAR HEMOGLOBIN 31 pg (27-31); MEAN CORPUSCULAR HGB CONC 34 g/dL (33-37); MONOCYTES # (AUTO) 0.6 K/uL (0.8-1.0); MONOCYTES % (AUTO) 10.9 % (1.7-9.3); NEUTROPHILS # (AUTO) 3.5 K/uL (1.8-7.7); NEUTROPHILS % (AUTO) 62.7 % (42.2-75.2); PLATELET COUNT (AUTO) 133 K/uL (140-450); RED BLOOD CELL COUNT(AUTO) 2.21 MIL/uL (4.20-5.40); RED CELL DISTRIBUTION WIDTH 14.6 % (11.6-13.7); WHITE BLOOD COUNT (AUTO) 5.7 K/uL (4.8-10.8)
[2020-08-05 10:56] LABS: HEMOGLOBIN 6.7 g/dL (12.0-16.0)
[2020-08-05 11:08] LABS: MAGNESIUM 2.4 mg/dL (1.8-2.4); PHOSPHORUS 2.9 mg/dL (2.5-4.9)
[2020-08-05 11:10] LABS: ANION GAP 10.4 (8-16); CARBON DIOXIDE 27.6 mmol/L (21-32); CHLORIDE 100 mmol/L (98-107); CREATININE 1.6 mg/dL (0.6-1.3); GLUCOSE 318 mg/dL (74-106); SODIUM SERUM 134 mmol/L (136-145); UREA NITROGEN, BLOOD 38 mg/dL (7-18)
[2020-08-05] MEDS ORDERED: ACETAMINOPHEN 325 MG TAB PO SCH (11:30)
[2020-08-05] MEDS ORDERED: cefTRIAXone 1,000 MG VIAL ONE (11:43)
[2020-08-05] MEDS ORDERED: diphenhydrAMINE 50 MG/ML VIAL IVP SCH (12:00)
[2020-08-05] MEDS ORDERED: VANCOMYCIN 750 MG in DEXTROSE 5% 250 ML IV SCH (12:00)
[2020-08-05] MEDS ORDERED: VANCOMYCIN 500 MG VIAL ONE (12:36)
[2020-08-05] MEDS: VANCOMYCIN 500 MG in DEXTROSE 5% 100 ML IV SCH (12:41)
--- NOTE | 2020-08-05 13:10 | NUR ---
P.T. NOTES P.T. EVAL COMPLETED; REFER TO EVAL FOR DETAILS; O2 SAT ROOM AIR=94%
--- NOTE | 2020-08-05 13:51 | NUR ---
PT ALERT AND AWAKE, BREATHING EVEN AND UNLABORED. PT FINISHED LUNCH
--- NOTE | 2020-08-05 14:03 | NUR ---
PER LAB BLOOD IS READY.
--- NOTE | 2020-08-05 14:20 | NUR ---
CONSENT FOR BLOOD TRANSFUSION SIGNED BY PATIENT
--- NOTE | 2020-08-05 14:30 | NUR ---
Consent signed per patient agreeing to administration of blood. Blood has been type and crossmatched. Blood sent from blood bank. Information on unit of blood checked against patient wristband at bedside by two nurses. All information matches. Patient or responsible green party informed of potential complications associated with blood transfusion. Informed of possible transfusion reaction symptoms. Aware of need to notify nurse at once of itching, shortness of breath, flushing, feeling of impending doom, or other symptoms not previously present. Vital signs taken within 5 minutes prior to initiation of transfusion. RN will remain with patient for first 15 minutes of transfusion at which time vital signs will be re-assessed.
--- NOTE | 2020-08-05 14:45 | NUR ---
no reaction from blood transfusion, rate increased to 250ml/hr
--- NOTE | 2020-08-05 16:20 | NUR ---
BLOOD TRANSFUSION COMPLETED, NO ADVERSE REACTIONS
--- NOTE | 2020-08-05 16:56 | NUR ---
MRSA + critical value received from lab. Dr Ely made aware
[2020-08-05] MEDS: LORazepam 2 MG/ML VIAL IM/IVP PRN (18:46)
--- NOTE | 2020-08-05 19:19 | NUR ---
REPORT GIVEN TO JAMES PALOMINO, DONATO OF CARE AT THIS TIME
--- NOTE | 2020-08-05 19:31 | NUR ---
RECEIVED REPORT FROM JENNY PALOMINO
--- NOTE | 2020-08-05 19:42 | NUR ---
PT'S R LOWER LEG WAS RUBBING UP AGAINST THE BEDRAIL, PT HAS TORN SKIN IN THAT AREA. LOWER RIGHT LEG IS DISCOLORED HAS BLISTERS AND SEROSANGUNIOUS DISCHARGE. PT REMAINS IN BEDSIDE MONITOR.
[2020-08-05] MEDS: rOPINIRole 0.25 MG TAB PO SCH (21:00)
[2020-08-05] MEDS: MUPIROCIN CA NASAL 2% 1GM TUBE NS SCH (21:59)
--- NOTE | 2020-08-05 22:11 | NUR ---
PT IS CONTINOUSLY TAKING OFF HER GOWN AND ATTEMPTING TO GET OUT OF BED. BED LINENS AND GOWN CHANGED. PT PLACED IN TRENDELEBERG. WILL CONTINUE TO MONITOR
[2020-08-05] MEDS: CHLORHEXADINE GLUC 2% CLOTH TP SCH (22:37)
[2020-08-05] MEDS: ZOLPIDEM 5 MG TAB PO PRN (23:35)
[2020-08-05] MEDS ORDERED: diphenhydrAMINE 50 MG/ML VIAL IVP ONE (23:40)
[2020-08-05] MEDS ORDERED: HALOPERIDOL IM 5 MG/ML VIAL IM ONE (23:40)
--- NOTE | 2020-08-05 23:45 | NUR ---
PT HIGHLY AGITATED, SCREAMING AND YELLING, CONTINUES TO REMOVE ALL HER CLOTHES, LINES AND TUBING. ATTEMPTS TO REORIENT PATIENT FAIL. PT TRYING TO HIT ANS SPIT ON STAFF. RECEIVED ORDER FOR NEW MEDS. PT TO BE ADMITTED TO 110
[2020-08-06] VITALS: BP 113/50
--- NOTE | 2020-08-06 | NUR ---
RECEIVED TELEPHONE REPORT FROM JAMES PALOMINO. PT TRANSFERRED TO BED 110A WITH ASSISTANCE OF CANDY PULLER AND EMT. PT TOLERATED WELL. PT IS AAOX1 TO SELF. RESPIRATIONS ARE EQUAL AND UNLABORED ON ROOM AIR. LUNG SOUNDS ARE DIMINISHED AT BASE. C/C S/P FALL AT SNF. PER PT SHE DOES NOT USE WALKER OR CANE. PT WITH LARGE HEMATOMA ON R LOWER LEG. R LEG IS PURPLE AND LARGE BLACK AREA TO R LATERAL SIDE OF LEG, MX FILLED BLISTERS. LEG IS SWOLLEN NON PITTING. PULSES PALPABLE R PEDAL PULSE IS NOT STRONG L LEG. CAP REFILL>3 ON R LEG. SENSATION IS INTACT. PT ABLE TO WIGGLE TOES AND RAISE LEG SLIGHTLY AGAINST GRAVITY MOTION IS LIMITED D/T PAIN. IV ON LW24G AND RAC 20G. DRESSING IS C/D/I. 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 ORIENTED PT TO ROOM, STAFF, CALL LIGHT, ALL NEEDS MET. CALL LIGHT IS WITHIN REACH. BED ALARM IS ON. WILL CONTINUE TO MONITOR.
[2020-08-06] MEDS: MORPHINE SULFATE 2 MG/ML SYR IVP PRN (00:33)
--- NOTE | 2020-08-06 00:33 | NUR ---
ADMINISTERED PRN MORPHINE FOR 10/10 LEG PAIN. B/P 113/50 HR 98. ALL NEEDS MET. CALL LIGHT IS WITHIN REACH. WILL CONTINUE TO MONITOR.
--- NOTE | 2020-08-06 00:34 | NUR ---
Patient will be admitted to care of DR ALMANZA. Admited to TELE. Will go to room 110. Belongings list completed. Report to ALAYNA PALOMINO.
--- NOTE | 2020-08-06 02:15 | NUR ---
PATIENT ATTEMPTED TO GET OUT OF BED. REORIENTED PATIENT TO ROOM AND STAFF. PT REPOSITION FOR COMFORT. BED ALARM ON AND BED ON LOWEST POSITION.
[2020-08-06 04:00] VITALS: BP 95/58
--- NOTE | 2020-08-06 04:00 | NUR ---
VITAL SIGNS ARE WITHIN NORMAL LIMITS. PT RESTING COMFORTABLY IN BED. SAFETY MEASURES ARE IN PLACE. WILL CONTINUE TO MONITOR.
[2020-08-06] MEDS: LEVOTHYROXINE 0.05 MG TAB PO SCH (06:32)
[2020-08-06] MEDS: LORazepam 2 MG/ML VIAL IM/IVP PRN (06:36)
--- NOTE | 2020-08-06 06:36 | NUR ---
PT IS VERY AGITATED, TRYING TO GET OUT OF BED. PT STATES, "I WANT TO GO HOME, LET ME GO HOME. YOU ARE ALL STUPID." ADMINISTERED PRN ATIVAN. SAFETY MEASURES ARE IN PLACE. BED ALARM ON AND BED LOWEST POSITION. PT REMAINS CLOSE TO NURSES STATION. WILL CONTINUE TO MONITOR.
--- NOTE | 2020-08-06 07:31 | NUR ---
GAVE BEDSIDE REPORT TO DAY RN. PT ENDORSED IN STABLE CONDITION.
[2020-08-06 08:00] VITALS: BP 156/87
[2020-08-06] MEDS ORDERED: CRUSHER, PILL MC ONE (08:58)
[2020-08-06] MEDS: LOSARTAN 25 MG TAB PO SCH (09:00)
[2020-08-06] MEDS: ATORVASTATIN 20 MG TAB PO SCH (09:12)
[2020-08-06] MEDS: METOPROLOL SUCCINATE 50 MG TABER PO SCH (09:13)
[2020-08-06] MEDS: allopurinoL 100 MG TAB PO SCH (09:14)
[2020-08-06] MEDS: lisinopriL 10 MG TAB PO SCH (09:14)
[2020-08-06] MEDS: DEXT 5% / NACL 0.45% 1,000 ML IV SCH (09:35)
--- NOTE | 2020-08-06 09:38 | NUR ---
SCHEDULED MEDICATIONS DUE GIVEN. WILL CONTINUE TO MONITOR.
[2020-08-06 09:53] LABS: BASOPHILS % (AUTO) 0.2 % (0.0-2.0); EOSINOPHILS # (AUTO) 0.1 K/uL (0-0.4); EOSINOPHILS % (AUTO) 0.8 % (0.0-4.0); HEMATOCRIT 25.8 % (36-48); HEMOGLOBIN 8.7 g/dL (12.0-16.0); LYMPHOCYTES # (AUTO) 0.8 K/uL (2.5-16.5); MEAN CORPUSCULAR HEMOGLOBIN 30 pg (27-31); MEAN CORPUSCULAR HGB CONC 34 g/dL (33-37); MEAN CORPUSCULAR VOLUME 90.3 fL (80-94); MONOCYTES # (AUTO) 0.7 K/uL (0.8-1.0); MONOCYTES % (AUTO) 8.6 % (1.7-9.3); NEUTROPHILS # (AUTO) 6.1 K/uL (1.8-7.7); NEUTROPHILS % (AUTO) 79.4 % (42.2-75.2); PLATELET COUNT (AUTO) 165 K/uL (140-450); RED BLOOD CELL COUNT(AUTO) 2.86 MIL/uL (4.20-5.40); RED CELL DISTRIBUTION WIDTH 14.8 % (11.6-13.7); WHITE BLOOD COUNT (AUTO) 7.6 K/uL (4.8-10.8)
[2020-08-06 10:04] LABS: MAGNESIUM 2.2 mg/dL (1.8-2.4); PHOSPHORUS 2.7 mg/dL (2.5-4.9)
[2020-08-06 10:14] LABS: ANION GAP 14.1 (8-16); CHLORIDE 102 mmol/L (98-107); CREATININE 1.5 mg/dL (0.6-1.3); GLUCOSE 250 mg/dL (74-106); POTASSIUM 4.1 mmol/L (3.5-5.1); SODIUM SERUM 138 mmol/L (136-145); UREA NITROGEN, BLOOD 32 mg/dL (7-18)
[2020-08-06 12:00] VITALS: BP 121/62
[2020-08-06] MEDS: VANCOMYCIN 500 MG in DEXTROSE 5% 100 ML IV SCH (13:00)
[2020-08-06 16:00] VITALS: BP 149/83
--- NOTE | 2020-08-06 19:28 | NUR ---
GAVE REPORT TO ANESTHETIC ASSISTANT NURSE FOR CONTINUITY OF CARE. PATIENT IN STABLE CONDITION.
--- NOTE | 2020-08-06 19:30 | NUR ---
RECEIVED BEDSIDE REPORT FROM DAY RN.PT IS AAOX1 TO SELF. RESPIRATIONS ARE EQUAL AND UNLABORED ON ROOM AIR. LUNG SOUNDS ARE DIMINISHED AT BASE. C/C S/P FALL AT SNF. PT WITH LARGE HEMATOMA ON R LOWER LEG. R LEG IS PURPLE AND LARGE BLACK AREA TO R LATERAL SIDE OF LEG, MX FLUID FILLED BLISTERS. LEG IS SWOLLEN NON PITTING. PULSES PALPABLE R PEDAL PULSE IS NOT STRONG L LEG. CAP REFILL>3 ON R LEG. SENSATION IS INTACT. PT ABLE TO WIGGLE TOES AND RAISE LEG SLIGHTLY AGAINST GRAVITY MOTION IS LIMITED D/T PAIN. IV ON RAC 20G IVF PER ORDERS. 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 BED ALARM ON AND LOWEST POSITION. ALL NEEDS MET. CALL LIGHT IS WITHIN REACH. BED ALARM IS ON. WILL CONTINUE TO MONITOR.
[2020-08-06 20:00] VITALS: BP 148/55
[2020-08-06] MEDS: CHLORHEXADINE GLUC 2% CLOTH TP SCH (20:53)
[2020-08-06] MEDS: MUPIROCIN CA NASAL 2% 1GM TUBE NS SCH (21:09)
[2020-08-06] MEDS: METOPROLOL 25 MG TAB PO SCH (21:09)
[2020-08-06] MEDS: rOPINIRole 0.25 MG TAB PO SCH ×2 (21:09→21:10)
--- NOTE | 2020-08-06 21:09 | NUR ---
VITAL SIGNS ARE STABLE. B/P 148/55 HR 99 ADMINISTERED GILBERT LOPRESSOR FOR BP. GILBERT MEDICATION GIVEN PER ORDERS. PT TOLERATED WELL. MED EDUCATION GIVEN PT UNABLE TO VERBALIZED UNDERSTANDING. ALL SAFETY MEASURES ARE IN PLACE. WILL CONTINUE TO MONITOR. Addendum: 08/07/20 at 0652 by Renae Feliciano RN REQUIP GILBERT 8 TAB PATIENT ONLY TOOK 2 TABS REFUSING TO TAKE ALL. EDUCATED PT STILL REFUSING.
[2020-08-06] MEDS: ZOLPIDEM 5 MG TAB PO PRN (21:10)
--- NOTE | 2020-08-07 | NUR ---
ROUNDS MADE. PATIENT IS SLEEPING COMFORTABLY IN BED WITH EYES CLOSED. CHEST RISE AND FALL NOTED.
[2020-08-07] MEDS: DEXT 5% / NACL 0.45% 1,000 ML IV SCH ×3 (02:27→21:03)
--- NOTE | 2020-08-07 02:30 | NUR ---
ROUNDS MADE. PT IS RESTING COMFORTABLY IN BED PT DENIES PAIN AT THIS TIME. BED ALARM ON. SAFETY MEASURES ARE IN PLACE.
[2020-08-07 04:00] VITALS: BP 142/83
[2020-08-07] MEDS: LEVOTHYROXINE 0.05 MG TAB PO SCH (06:04)
[2020-08-07] MEDS: MORPHINE SULFATE 2 MG/ML SYR IVP PRN (06:09)
--- NOTE | 2020-08-07 07:35 | NUR ---
GAVE BEDSIDE REPORT TO DAY RN. PT ENDORSED IN STABLE CONDITION.
--- NOTE | 2020-08-07 08:00 | NUR ---
RECEIVED REPORT FROM TUBING MACHINE TENDER FOR CONTINUITY OF CARE. PATIENT ASLEEP , DOESN'T WANT TO BE BOTHER. WITH IVF ON GOING AND INFUSING WELL. INITIAL ASSESSMENT INITIATED. ON RA 100% SATURATION. CALL LIGHT WITHIN REACH. WILL CONTINUE TO MONITOR.
[2020-08-07 08:52] LABS: ANION GAP 11.8 (8-16); CARBON DIOXIDE 26.1 mmol/L (21-32); CHLORIDE 104 mmol/L (98-107); CREATININE 1.3 mg/dL (0.6-1.3); GLUCOSE 233 mg/dL (74-106); POTASSIUM 3.9 mmol/L (3.5-5.1); SODIUM SERUM 138 mmol/L (136-145); UREA NITROGEN, BLOOD 26 mg/dL (7-18)
--- NOTE | 2020-08-07 09:00 | NUR ---
PATIENT DUE MEDICATION GIVEN AND REFUSED TO TAKE IT. WILL CONTINUE TO MONITOR.
[2020-08-07 09:03] LABS: BASOPHILS % (AUTO) 0.4 % (0.0-2.0); EOSINOPHILS # (AUTO) 0.1 K/uL (0-0.4); EOSINOPHILS % (AUTO) 0.6 % (0.0-4.0); HEMATOCRIT 23.8 % (36-48); LYMPHOCYTES # (AUTO) 0.9 K/uL (2.5-16.5); LYMPHOCYTES % (AUTO) 10.7 % (20.5-51.1); MEAN CORPUSCULAR HEMOGLOBIN 31 pg (27-31); MEAN CORPUSCULAR HGB CONC 34 g/dL (33-37); MEAN CORPUSCULAR VOLUME 90.7 fL (80-94); MONOCYTES # (AUTO) 0.7 K/uL (0.8-1.0); MONOCYTES % (AUTO) 8.3 % (1.7-9.3); NEUTROPHILS # (AUTO) 6.3 K/uL (1.8-7.7); PLATELET COUNT (AUTO) 185 K/uL (140-450); RED BLOOD CELL COUNT(AUTO) 2.63 MIL/uL (4.20-5.40); RED CELL DISTRIBUTION WIDTH 14.8 % (11.6-13.7); WHITE BLOOD COUNT (AUTO) 7.9 K/uL (4.8-10.8)
[2020-08-07] MEDS: allopurinoL 100 MG TAB PO SCH (09:52)
[2020-08-07] MEDS: METOPROLOL 25 MG TAB PO SCH ×2 (09:53→21:00)
[2020-08-07] MEDS: lisinopriL 10 MG TAB PO SCH (09:53)
[2020-08-07] MEDS: ATORVASTATIN 20 MG TAB PO SCH (09:53)
--- NOTE | 2020-08-07 12:00 | NUR ---
PATIENT OFFERED TO HAVE SOME FOOD AND TO TAKE HER MEDICATION, SHE REFUSED AND DOESN'T WANT TO BE BOTHER. WILL CONTINUE TO MONITOR.
[2020-08-07] MEDS: VANCOMYCIN 500 MG in DEXTROSE 5% 100 ML IV SCH (12:48)
[2020-08-07 16:00] VITALS: BP 140/50
--- NOTE | 2020-08-07 19:50 | NUR ---
REPORT GIVEN TO THE STRIP DEBURRER FOR CONTINUITY OF CARE.
--- NOTE | 2020-08-07 19:51 | NUR ---
RECEIVED REPORT FROM KEESHA MOY PT AOX1 CONFUSED ON ROOM AIR, NO S/S RESPIRATORY DISTRESS. NO C/O PAIN AT THIS TIME. IV SITE RAC 20G PATENT INTACT, INFUSING IVF ORDERED. HAS BLISTER TO R LEG. SAFETY MEASURES IN PLACE. CALL LIGHT WITHIN REACH. WILL CONTINUE TO MONITOR
[2020-08-07 20:00] VITALS: BP 154/58
[2020-08-07] MEDS: rOPINIRole 1 MG TAB PO SCH (21:00)
[2020-08-07] MEDS: MUPIROCIN CA NASAL 2% 1GM TUBE NS SCH (21:04)
--- NOTE | 2020-08-07 21:05 | NUR ---
REFUSED SCHEDULED MEDICATIONS, OFFERED WATER, JUICE, APPLE SAUCE BUT PATIENT REFUSED. WILL CONTINUE TO MONITOR
[2020-08-07] MEDS: CHLORHEXADINE GLUC 2% CLOTH TP SCH (21:08)
[2020-08-08] VITALS: BP 133/71
[2020-08-08] MEDS: MORPHINE SULFATE 2 MG/ML SYR IVP PRN ×3 (00:28→16:54)
--- NOTE | 2020-08-08 00:30 | NUR ---
PRN MORPHINE GIVEN FOR C/O LEG PAIN, TOLERATED WELL. WILL CONTINUE TO MONITOR
[2020-08-08] MEDS ORDERED: DEXTROSE 50% 50 ML SYR IVP PRN (01:50)
--- NOTE | 2020-08-08 03:05 | NUR ---
PT ASLEEP IN BED, RESPIRATIONS EVEN UNLABORED. NO DISTRESS NOTED. WILL CONTINUE TO MONITOR
[2020-08-08 04:00] VITALS: BP 136/61
[2020-08-08] MEDS: HYDROcodone/APAP 5/325 MG 1 TAB TAB PO PRN (04:48)
[2020-08-08] MEDS: BLOOD GLUCOSE MONITORING 1 DEV DEV FS SCH ×4 (05:52→20:26)
[2020-08-08] MEDS: INSULIN LISPRO SLIDING SCALE 100 UNITS/ML VIAL SUBQ PRN ×4 (06:11→20:29)
[2020-08-08] MEDS: LEVOTHYROXINE 0.05 MG TAB PO SCH (06:21)
--- NOTE | 2020-08-08 07:45 | NUR ---
ENDORSED PT TO DAY RN FOR CONTINUITY OF CARE. PT IS IN STABLE CONDITION
--- NOTE | 2020-08-08 07:45 | NUR ---
REC'D REPORT FROM RESEARCH ENGINEER [employer] NURSE ,PT SLEEPING, RA. IV SITE PATENT INFUSING D5/0.42 NS AT 60ML/HR
[2020-08-08 08:34] LABS: FOLIC ACID 10.8 ng/mL (>3.0)
[2020-08-08] MEDS ORDERED: SODIUM FERRIC GLUCONATE 125 MG in NACL 0.9% 100 ML IV ONE (09:00)
--- NOTE | 2020-08-08 10:21 | NUR ---
WOUND CARE NURSE AT BEDSIDE FOR CONSULT, SHE WILL CONTACT DR. HOLLINGSWORTH FOR REPORT
[2020-08-08] MEDS: METOPROLOL 25 MG TAB PO SCH ×2 (10:26→21:00)
[2020-08-08] MEDS: ATORVASTATIN 20 MG TAB PO SCH (10:27)
[2020-08-08] MEDS: allopurinoL 100 MG TAB PO SCH (10:27)
[2020-08-08] MEDS: lisinopriL 10 MG TAB PO SCH (10:27)
--- NOTE | 2020-08-08 11:15 | NUR ---
PT'S IV CATHETER DRESSING LEAKING, CATHETER OUT SIDE OF AC VESSEL. ATTEMPTED TO ACCESS IV ON L.FOREARM UNSUCCESSFUL. WILL ASK OTHER NURSE TO ASSIST.
--- NOTE | 2020-08-08 11:34 | NUR ---
WOUND CARE EVALUATION NOTE: WOUND ASSESSMENT DONE WITH PRIMARY RN, PT. IS AAX3. PT. ADMITTED WITH RIGHT LOWER LEG HEMATOMA S/P MECHANICAL FALL, INFECTED WOUND. PAST MEDICAL HX OF Suzette WASSERMAN ON AC, HTN, DM AND CVA. PT. C/O RLE PAIN 03/07. PAIN MEDICATION REQUESTED AND GIVEN BY PRIMARY RN. RLE- INFECTED WOUND [id number],70 % WOUND BED BLACK NECROTIC TISSUE, 30 % BLOODY FLUIDS FILLED HEMATOMA, WOUND EDGE FLAT, TANISHA-WOUND MULTIPLE CLEAR FLUIDS FILLED INTACT BLISTERS, TANISHA WOUND SKIN ERYTHEMA, WARM AND PAINFUL TO TOUCH, +3 EDEMA FROM KNEE DOWN TO TANISHA-ANKLE AREA. POC AND RECOMMENDATION DISCUSSED WITH PT. PT. REFUSED SURGERY, EXPLAIN TO PT. WILL HAVE PHYSICIAN TO DISCUSSED WITH PT. PT. VERBALIZES UNDERSTANDING. POC DISCUSSED WITH PRIMARY RN. CALL TO DR. MACIEL WHO IS THE ATTENDING PHYSICIAN FOR THE PT. FOR THIS WEEK, ABOVE INFORMATION REPORTED WITH POC DISCUSSED. HE WILL CALL DR. CHEN FOR CONSULTATION. RECOMMENDATIONS: -SURGEON CONSULT TO RLE INFECTED WOUND -RLE WOUND APPLY SOAKED BETADINE 4X4 TO BLACK NECROTIC WOUND BED , APPLY ADAPTIC DRESSING TO HEMATOMA AND TANISHA WOUND BLISTERS, COVER WITH DRY DRESSING AND WRAP WITH KERLIX ROLLS QD AND PRN IF SOILING -ELEVATED RLE -TURN AND REPOSITION PATIENT Q 2H -ASSESS AND MONITOR SKIN CONDITION DURING POSITION CHANGE -OFFLOAD BILATERAL HEELS BY PLACING PILLOWS UNDER CALVES AT ALL TIMES, UNLESS OTHERWISE CONTRAINDICATED -PRESSURE REDISTRIBUTION BY PLACING PILLOWS AND OFFLOADING SACRALCOCCYX -KEEP SKIN CLEAN AND DRY AT ALL TIMES.
--- NOTE | 2020-08-08 12:33 | NUR ---
ATTEMPT TO ESTABLISH IV ACCESS BY NURSE CORD CUTTER AND OR NURSE UNSUCCESSFUL.
[2020-08-08] MEDS: GAUZE TP SCH (13:00)
--- NOTE | 2020-08-08 14:00 | NUR ---
PT CONSULTED BY DR. CHEN, RECOMMENDS I&D FOR TOMORROW, PT TO BE NPO AFTER MIDNIGHT.
[2020-08-08] MEDS: VANCOMYCIN 750 MG in DEXTROSE 5% 250 ML IV SCH (15:00)
--- NOTE | 2020-08-08 15:08 | NUR ---
DC PLAN[age] YRS OLD FEMALE PATIENT WAS ADMITTED FROM [facility] WITH A DX OF RT LEG HEMATOMA. CONSULTED WITH ORTHO SAYED NOT RECOMMENDING SURGERY. DR CHEN CONSULTED FOR I&D DC PLAN TO GO BACK TO [facility] WHEN STABLE. Addendum: 08/10/20 at 1147 by Doris Webb CM DC RESOURCE RECOVERY ENGINEER: RECEIVED DC ORDER, FAXED PATIENTS PACKET TO [facility]. WILL FOLLOW UP Addendum: 08/10/20 at 1151 by Doris Webb CM DC RESOURCE RECOVERY ENGINEER: RECEIVED NEW ORDER FOR TRANSFER TO [place]. FAXED WILL FOLLOW UP. Addendum: 08/10/20 at 1303 by Whit Camargo RN DC PLANNING: PT HAS AN ORDER TO GO TO [facility] , CALLED PT'S DAUGHTER DARON [phone] DISCUSSED THE CARE NEEDS AT [facility] AND DR CHEN IS FOLLOWING PATIENT AT [facility]. DARON AGREED AND FAXED TO [facility]. CM TO FOLLOW Addendum: 08/11/20 at 1646 by Whit Camargo RN DC PLANNING: RECEIVED A CALL FROM [facility] STILL AWAITING FOR BED AT [facility] ACCEPTING DR WILL BE DR RYDER ARRANGED TRANSPORT WILL CALL CM TO FOLLOW Addendum: 08/11/20 at 1650 by Doris Webb CM DC RESOURCE RECOVERY ENGINEER: SET UP WILL CALL TRANSPORTATION WITH [facility] [phone]. Addendum: 08/12/20 at 1624 by Whit Camargo RN DC PLANNING: STILL AWAITING FOR [facility] BED ,SPOKE WITH [facility] WILL CALL WHEN BED AVAILABLE. DC PLAN TO GO TO [facility] FOR WOUND CARE POSSIBLE SKIN GRAFT BY DR OH. LEZAMA TO FOLLOW Addendum: 08/13/20 at 1316 by Doris Webb CM DC RESOURCE RECOVERY ENGINEER: RECEIVED A CALL FROM [facility] AT [facility] THEY DO NOT HAVE ANY AVAILABLE BEDS. FAXED UPDATED CLINICALS Addendum: 08/14/20 at 1034 by Whit Camargo RN DC PLANNING CALLED [facility] AT [facility] AND LEFT A MESSAGE REGARDING A TRANSFER TO [facility]. CM TO FOLLOW Addendum: 08/15/20 at 1437 by Whit Camargo RN DC PLANNING: SPOKE WITH [facility] AT [facility] STILL NO BED AVAILABLE. PER SURGEON DR ARGENIS STEIN'S NOTES OK TO DC BACK TO [facility]. AWAITING FOR DC ORDER. CM TO FOLLOW. Addendum: 08/15/20 at 1511 by Doris Webb CM DC RESOURCE RECOVERY ENGINEER: PATIENT WILL DC BACK TO [facility]. FAXED PATIENTS CLINICALS. RECEIVED A CALL FROM [facility] PATIENT CAN GO TO ROOM [address] JOSHI. TRANSPORTATION HAS BEEN SET UP WITH [facility] [phone] PROVIDED AUTH [id number]. [employer]E CHOCOLATE DIPPER TIME IS 5:00 PM. NOTIFIED CANDELARIO FALCON AND ANDRE AT [facility].
--- NOTE | 2020-08-08 15:15 | NUR ---
IV ACCESS ESTABLISHED, L. HAND 22 G BY Coleen NURSE ,PT TOLERATED PROCEDURE WELL
[2020-08-08 16:00] VITALS: BP 130/46
--- NOTE | 2020-08-08 17:50 | NUR ---
08/08/20 RD INITIAL ASSESSMENT COMPLETED PLEASE REFER TO NUTRITION ASSESSMENT UNDER CARE ACTIVITY FOR ESTIMATED NUTRITIONAL NEEDS. 1. RECOMMEND MECHANICAL SOFT CARDIAC CCHO 60GM DIET TOLERATED 2. RECOMMEND GLUCERNA TID 3. RECOMMEND VITAMIN C 200 MG BID AND MULTIVITAMIN DAILY 4. ENCOURAGE PO INTAKE >75% 5. RD TO FOLLOW-UP 2-3 DAYS, HIGH RISK RADHA BARRY, RD
--- NOTE | 2020-08-08 19:50 | NUR ---
ENDORSED PT TO DESK OPERATOR NURSE, PT ON RA. STABLE, SHE HAS NOT SIGNED CONSENT FOR I&D TOMORROW SINCE SHE SAID SHE WOULD THINK ABOUT IT, DESK OPERATOR TO OBTAIN CONSENT IF PT WILLING TO HAVE PROCEDURE.
--- NOTE | 2020-08-08 19:51 | NUR ---
RECEIVED REPORT FROM DAY CANDELARIO AYALA. PT ASLEEP IN BED ON ROOM AIR, NO S/S RESP. DISTRESS, NO C/O PAIN AT THIS TIME. IV SITE L WRIST 22G PATENT INTACT. SAFETY MEASURES IN PLACE, CALL LIGHT WITHIN REACH. WILL CONTINUE TO MONITOR
[2020-08-08] MEDS: MUPIROCIN CA NASAL 2% 1GM TUBE NS SCH (21:52)
[2020-08-08] MEDS: rOPINIRole 1 MG TAB PO SCH (21:53)
--- NOTE | 2020-08-08 21:55 | NUR ---
ADMINISTERED SCHEDULED MEDS, PT TOLERATED WELL. WILL CONTINUE TO MONITOR
[2020-08-08] MEDS: CHLORHEXADINE GLUC 2% CLOTH TP SCH (21:56)
--- NOTE | 2020-08-08 22:10 | NUR ---
PT YELLING, REFUSING TO HAVE I&D PROCEDURE DONE, PT STATES, "I DO NOT WANT TO HAVE ANY SURGERY OR PROCEDURES DONE." EXPLAINED TO PATIENT THE RISK AND BENEFITS OF THE PROCEDURE. PT STILL KEPT ON YELLING AND WISHES TO NOT HAVE THE PROCEDURE. WILL CONTINUE TO MONITOR
[2020-08-08] MEDS: ZOLPIDEM 5 MG TAB PO PRN (22:26)
[2020-08-09] VITALS: BP 142/70
[2020-08-09] MEDS: DEXT 5% / NACL 0.45% 1,000 ML IV SCH ×2 (04:15→20:45)
[2020-08-09] MEDS: BLOOD GLUCOSE MONITORING 1 DEV DEV FS SCH ×4 (05:41→21:17)
[2020-08-09] MEDS: INSULIN LISPRO SLIDING SCALE 100 UNITS/ML VIAL SUBQ PRN ×3 (06:10→21:19)
--- NOTE | 2020-08-09 06:25 | NUR ---
OBTAINED TELEPHONE CONSENT FOR PATIENT'S I&D PROCEDURE FROM PATIENT'S DAUGHTER, DARON RASHID . VERIFIED WITH 2ND RN
[2020-08-09] MEDS: LEVOTHYROXINE 0.05 MG TAB PO SCH (06:30)
--- NOTE | 2020-08-09 07:35 | NUR ---
ENDORSED PT TO DAY RN FOR CONTINUITY OF CARE. PT IS IN STABLE CONDITION.
--- NOTE | 2020-08-09 07:35 | NUR ---
RECEIVED PATIENT FROM NIGHT NURSE. PATIENT IN BED SLEEPING, NO NOTED ACUTE S/S DISTRESS. CONTINUE ON ROOM AIR. CHEST NOTED RISING. LW22G. SAFETY MEASURES IN PLACE. CALL LIGHT WITHIN REACH. WILL CONTINUE WITH CARE.
[2020-08-09 08:00] VITALS: BP 127/52
[2020-08-09 08:39] LABS: BASOPHILS % (AUTO) 0.3 % (0.0-2.0); EOSINOPHILS # (AUTO) 0.1 K/uL (0-0.4); EOSINOPHILS % (AUTO) 1.3 % (0.0-4.0); HEMATOCRIT 23.9 % (36-48); HEMOGLOBIN 8.1 g/dL (12.0-16.0); LYMPHOCYTES # (AUTO) 0.8 K/uL (2.5-16.5); MEAN CORPUSCULAR HEMOGLOBIN 31 pg (27-31); MEAN CORPUSCULAR HGB CONC 34 g/dL (33-37); MEAN CORPUSCULAR VOLUME 91.1 fL (80-94); MONOCYTES # (AUTO) 0.8 K/uL (0.8-1.0); MONOCYTES % (AUTO) 11.3 % (1.7-9.3); NEUTROPHILS # (AUTO) 5.1 K/uL (1.8-7.7); NEUTROPHILS % (AUTO) 75.1 % (42.2-75.2); PLATELET COUNT (AUTO) 195 K/uL (140-450); RED BLOOD CELL COUNT(AUTO) 2.62 MIL/uL (4.20-5.40); RED CELL DISTRIBUTION WIDTH 15.1 % (11.6-13.7); WHITE BLOOD COUNT (AUTO) 6.8 K/uL (4.8-10.8)
[2020-08-09] MEDS: METOPROLOL 25 MG TAB PO SCH ×2 (09:10→21:17)
[2020-08-09] MEDS: lisinopriL 10 MG TAB PO SCH (09:10)
[2020-08-09] MEDS: allopurinoL 100 MG TAB PO SCH (09:12)
[2020-08-09] MEDS: ATORVASTATIN 20 MG TAB PO SCH (09:12)
--- NOTE | 2020-08-09 09:25 | NUR ---
PATIENT IN BED AWAKE AND ALERT. RESP EVEN AND UNLABORED ON ROOM AIR. DENIED OF PAIN AT THIS TIME. RIGHT LOWER LEG NOTED WITH LARGE HEMATOMA WRAPPED WITH GAUZE. NO ACTIVE BLEEDING AT THIS TIME. PATIENT INSISTED ON NOT HAVING THE I/D PROCEDURE. PATIENT WAS MADE AWARE THAT DAUGHTER DARON GAVE CONSENT OVER THE PHONE AND WANTED PATIENT TO HAVE THIS PROCEDURE. PATIENT WANTED TO SPEAK TO DR CHEN PRIOR TO PROCEDURE. IV ACCESS DISLODGED. WILL MAKE ANOTHER ATTEMPT TO INSERT. PATIENT VERBALIZED UNDERSTANDING. MORNING ROUTINE MEDICATIONS GIVEN. SAFETY MEASURES IN PLACE. CALL LIGHT WITHIN REACH. WILL CONTINUE TO MONITOR.
[2020-08-09 10:05] LABS: CARBON DIOXIDE 22.9 mmol/L (21-32); CHLORIDE 103 mmol/L (98-107); CREATININE 1.4 mg/dL (0.6-1.3); GLUCOSE 249 mg/dL (74-106); POTASSIUM 3.9 mmol/L (3.5-5.1); SODIUM SERUM 138 mmol/L (136-145); UREA NITROGEN, BLOOD 29 mg/dL (7-18)
[2020-08-09 10:23] LABS: MAGNESIUM 1.7 mg/dL (1.8-2.4); PHOSPHORUS 2.3 mg/dL (2.5-4.9)
--- NOTE | 2020-08-09 13:29 | NUR ---
IV INSERTION TO 22G USING ASEPTIC TECHNIQUE. PATIENT TO OR FOR SURGERY. PATIENT LEFT IN STABLE CONDITION.
[2020-08-09] MEDS ORDERED: fentaNYL citrate 0.05 MG/ML VIAL ONE (14:00)
[2020-08-09] MEDS ORDERED: MIDAZOLAM 2 MG/2 ML VIAL ONE (14:00)
[2020-08-09] MEDS ORDERED: MORPHINE SULFATE 4 MG/ML SYR IV PRN (15:40)
[2020-08-09] MEDS ORDERED: MORPHINE SULFATE 2 MG/ML SYR IVP PRN (15:40)
[2020-08-09] MEDS ORDERED: ONDANSETRON 4 MG/2 ML VIAL IV PRN (15:40)
[2020-08-09] MEDS ORDERED: HYDROmorphone 1 MG/ML AMP IVP PRN (15:40)
--- NOTE | 2020-08-09 17:30 | NUR ---
PATIENT RETURNED FROM OR S/P DEBRIDEMENT OF RIGHT LOWER LEG HEMATOMA. PATIENT IN STABLE CONDITION. VITALS WNL. RESP EVEN AND UNLABORED ON ROOM AIR. IV ANTIBIOTIC GIVEN. BLOOD SUGAR 234. INSULIN GIVEN PER PROTOCOL. PATIENT IN BED SLEEPING BUT EASILY AROUSABLE. DENIED OF PAIN AT THIS TIME. RIGHT LOWER LEG WRAPPED IN BANDAGE, DRY AND INTACT. PATIENT ABLE TO FOLLOW COMMAND AND MAKES NEED KNOWN. CALL LIGHT WITHIN REACH.WILL CONTINUE TO MONITOR.
--- NOTE | 2020-08-09 17:58 | NUR ---
P.T. NOTES HOLD P.T. TX DUE TO PATIENT UNAVAILABLE FOR HOSPITAL PROCEDURE (R LEG HEMATOMA I&D PER CHART).
[2020-08-09] MEDS: GAUZE TP SCH (18:10)
[2020-08-09] MEDS: VANCOMYCIN 750 MG in DEXTROSE 5% 250 ML IV SCH (18:14)
--- NOTE | 2020-08-09 19:20 | NUR ---
RECEIVED BEDSIDE REPORT FROM DAY RN.PT IS AAOX2 . RESPIRATIONS ARE EQUAL AND UNLABORED ON ROOM AIR. LUNG SOUNDS ARE DIMINISHED AT BASE. C/C S/P FALL. PT WITH LARGE HEMATOMA ON R LOWER LEG. S/P I&D AND DEBRIDEMENT TODAY DRESSING IS C/D/I. PULSES PALPABLE R PEDAL PULSE IS NOT STRONG L LEG. CAP REFILL < 3SEC. SENSATION IS INTACT. PT ABLE TO WIGGLE TOES AND RAISE LEG SLIGHTLY AGAINST GRAVITY MOTION IS LIMITED D/T PAIN. IV ON RFA 20G SL AND L BERGMAN 22G IV ABX INFUSING PER ORDERS. 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 BED ALARM ON AND LOWEST POSITION. ALL NEEDS MET. CALL LIGHT IS WITHIN REACH. BED ALARM IS ON. WILL CONTINUE TO MONITOR.
--- NOTE | 2020-08-09 19:20 | NUR ---
ENDORSED PATIENT TO NIGHT NURSE. PATIENT IN STABLE CONDITION.
[2020-08-09 20:00] VITALS: BP 135/57
[2020-08-09] MEDS: rOPINIRole 1 MG TAB PO SCH (21:17)
[2020-08-09] MEDS: MUPIROCIN CA NASAL 2% 1GM TUBE NS SCH (21:17)
--- NOTE | 2020-08-09 21:17 | NUR ---
VITAL SIGNS ARE STABLE. ADMINISTER GILBERT MEDICATIONS PER ORDERS. BLOOD SUGAR 288 INSULIN PER SLIDING SCALE SNACK AT BEDSIDE. BP 135/57 73 BPM. MED EDUCATION GIVEN, SAFETY MEASURES ARE IN PLACE. CALL LIGHT IS WITHIN REACH. WILL CONTINUE TO MONITOR.
[2020-08-09] MEDS: CHLORHEXADINE GLUC 2% CLOTH TP SCH (21:18)
--- NOTE | 2020-08-09 22:00 | NUR ---
ROUNDS MADE PT IS RESTING COMFORTABLY IN BED. NO S/S OF DISTRESS. BED ALARM ON. WILL CONTINUE TO MONITOR.
[2020-08-10] VITALS: BP 131/60
--- NOTE | 2020-08-10 | NUR ---
VITAL SIGNS ARE WITHIN NORMAL LIMITS. ALL SAFETY MEASURES ARE IN PLACE. WILL CONTINUE TO MONITOR.
--- NOTE | 2020-08-10 02:09 | NUR ---
ROUNDS MADE. PT IS SLEEPING COMFORTABLY IN BED WITH EYES CLOSED. CHEST RISE AND FALL NOTED. NO S/S OF DISTRESS. SAFETY MEASURES ARE IN PLACE.
[2020-08-10 04:00] VITALS: BP 92/62
--- NOTE | 2020-08-10 04:00 | NUR ---
VITAL SIGNS ARE STABLE. PT IS RESTING COMFORTABLY IN BED DENIES ANY PAIN OR DISCOMFORT AT THIS TIME. CALL LIGHT IS WITHIN REACH. WILL CONTINUE TO MONITOR.
[2020-08-10] MEDS: BLOOD GLUCOSE MONITORING 1 DEV DEV FS SCH ×4 (06:15→20:09)
[2020-08-10] MEDS: INSULIN LISPRO SLIDING SCALE 100 UNITS/ML VIAL SUBQ PRN ×4 (06:15→20:11)
[2020-08-10] MEDS: LEVOTHYROXINE 0.05 MG TAB PO SCH (06:15)
[2020-08-10] MEDS: HYDROcodone/APAP 5/325 MG 1 TAB TAB PO PRN ×2 (06:19→10:59)
--- NOTE | 2020-08-10 06:19 | NUR ---
BLOOD SUGAR 249 ADMINISTERED INSULIN PER SLIDING SCALE. C/O BACK AND LEG PAIN 6/10 ADMINISTERED PRN NORCO. ALL NEEDS MET. CALL LIGHT IS WITHIN REACH.
--- NOTE | 2020-08-10 07:26 | NUR ---
GAVE BEDSIDE REPORT TO DAY RN. PT ENDORSED IN STABLE CONDITION.
[2020-08-10 08:00] VITALS: BP 122/59
[2020-08-10 08:55] LABS: BASOPHILS % (AUTO) 0.2 % (0.0-2.0); HEMATOCRIT 27.7 % (36-48); HEMOGLOBIN 9.4 g/dL (12.0-16.0); LYMPHOCYTES # (AUTO) 0.5 K/uL (2.5-16.5); LYMPHOCYTES % (AUTO) 7.4 % (20.5-51.1); MEAN CORPUSCULAR HEMOGLOBIN 31 pg (27-31); MEAN CORPUSCULAR HGB CONC 34 g/dL (33-37); MEAN CORPUSCULAR VOLUME 90.6 fL (80-94); MONOCYTES # (AUTO) 0.4 K/uL (0.8-1.0); MONOCYTES % (AUTO) 5.6 % (1.7-9.3); NEUTROPHILS # (AUTO) 6.1 K/uL (1.8-7.7); NEUTROPHILS % (AUTO) 86.8 % (42.2-75.2); PLATELET COUNT (AUTO) 234 K/uL (140-450); RED BLOOD CELL COUNT(AUTO) 3.06 MIL/uL (4.20-5.40); RED CELL DISTRIBUTION WIDTH 15.1 % (11.6-13.7)
[2020-08-10] MEDS: ATORVASTATIN 20 MG TAB PO SCH (09:15)
[2020-08-10] MEDS: METOPROLOL 25 MG TAB PO SCH ×2 (09:15→20:09)
[2020-08-10] MEDS: lisinopriL 10 MG TAB PO SCH (09:16)
[2020-08-10] MEDS: allopurinoL 100 MG TAB PO SCH (09:17)
--- NOTE | 2020-08-10 09:18 | NUR ---
SCHEDULED MEDICATIONS DUE GIVEN. WILL CONTINUE TO MONITOR.
[2020-08-10 10:46] LABS: ANION GAP 15.8 (8-16); CARBON DIOXIDE 20.7 mmol/L (21-32); CHLORIDE 104 mmol/L (98-107); CREATININE 1.4 mg/dL (0.6-1.3); GLUCOSE 290 mg/dL (74-106); POTASSIUM 4.5 mmol/L (3.5-5.1); SODIUM SERUM 136 mmol/L (136-145); UREA NITROGEN, BLOOD 33 mg/dL (7-18)
[2020-08-10 12:00] VITALS: BP 126/62
[2020-08-10] MEDS: GAUZE TP SCH (12:52)
[2020-08-10] MEDS: DEXT 5% / NACL 0.45% 1,000 ML IV SCH (12:53)
[2020-08-10] MEDS: VANCOMYCIN 750 MG in DEXTROSE 5% 250 ML IV SCH (15:26)
--- NOTE | 2020-08-10 15:53 | NUR ---
08/10/20 RD FOLLOW UP COMPLETED PLEASE REFER TO NUTRITION ASSESSMENT UNDER CARE ACTIVITY FOR ESTIMATED NUTRITIONAL NEEDS. 1. CONTINUE MECHANICAL SOFT CCHO 60GM DIET TOLERATED 2. RECOMMEND GLUCERNA TID 3. RECOMMEND VITAMIN C 200 MG BID AND MULTIVITAMIN DAILY 4. ENCOURAGE PO INTAKE >75% 5. RD TO FOLLOW-UP 3-5 DAYS, MODERATE RISK RADHA BARRY, RD
[2020-08-10 16:00] VITALS: BP 115/62
--- NOTE | 2020-08-10 17:53 | NUR ---
SCHEDULED MEDICATIONS DUE GIVEN. GLUCOSE:417, PER DR. MACIEL, COVER WITH 10 UNITS. WILL CONTINUE TO MONITOR.
--- NOTE | 2020-08-10 18:05 | NUR ---
P.T. NOTES HOLD P.T. TX, Pt DROWSY, UNABLE TO ACTIVELY PARTICIPATE AT THIS TIME, CALL VERNON, PHONE, TABLE IN REACH, BED ALARM ON; FF UP WHEN PARTICIPATIVE. 08/10/20 Hgb=9.4, VRRKRVS=784
--- NOTE | 2020-08-10 19:25 | NUR ---
RECEIVED BEDSIDE REPORT FROM DAY RN.PT IS AAOX2 SITTING UP EATING DINNER. RESPIRATIONS ARE EQUAL AND UNLABORED ON ROOM AIR. LUNG SOUNDS ARE DIMINISHED AT BASE. C/C S/P FALL. DX R LEG HEMATOMA. S/P I&D AND DEBRIDEMENT POD #1 DRESSING IS C/D/I DRESSING CHANGE TODAY. PULSES PALPABLE AND EQUAL. CAP REFILL < 3SEC. SENSATION IS INTACT. PT ABLE TO WIGGLE TOES AND RAISE LEG SLIGHTLY AGAINST GRAVITY MOTION IS LIMITED D/T PAIN. IV ON RFA 20G SL AND L BERGMAN 22G IV TKO. 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 BED ALARM ON AND LOWEST POSITION. ALL NEEDS MET. CALL LIGHT IS WITHIN REACH. BED ALARM IS ON. WILL CONTINUE TO MONITOR.
[2020-08-10 20:00] VITALS: BP 126/63
[2020-08-10] MEDS: rOPINIRole 1 MG TAB PO SCH (20:09)
--- NOTE | 2020-08-10 20:09 | NUR ---
VITAL SIGNS ARE STABLE. BLOOD SUGAR 407 ADMINISTERED INSULIN 10U SNACK AT BEDSIDE. GILBERT MEDICATIONS GIVEN PER ORDERS. PT WAS CLEANED AND REPOSITION. ALL NEEDS MET. CALL LIGHT IS WITHIN REACH.
--- NOTE | 2020-08-10 22:07 | NUR ---
ROUNDS MADE. PT IS SLEEPING COMFORTABLY IN BED. NO S/S OF DISTRESS. CALL LIGHT IS WITHIN REACH
[2020-08-11] VITALS: BP 118/67
--- NOTE | 2020-08-11 | NUR ---
VITAL SIGNS ARE WITHIN NORMAL LIMITS. ALL SAFETY MEASURES ARE IN PLACE. CALL LIGHT IS WITHIN REACH. WILL CONTINUE TO MONITOR.
[2020-08-11] MEDS: HYDROcodone/APAP 5/325 MG 1 TAB TAB PO PRN ×2 (00:59→09:43)
--- NOTE | 2020-08-11 02:05 | NUR ---
PATIENT WAS CLEANED AND REPOSITION FOR COMFORT. ALL NEEDS MET. CALL LIGHT IS WITHIN REACH.
[2020-08-11 04:00] VITALS: BP 99/63
--- NOTE | 2020-08-11 04:00 | NUR ---
VITAL SIGNS ARE WITHIN NORMAL LIMITS. ALL SAFETY MEASURES ARE IN PLACE. WILL CONTINUE TO MONITOR.
[2020-08-11] MEDS: BLOOD GLUCOSE MONITORING 1 DEV DEV FS SCH ×4 (05:53→20:15)
[2020-08-11] MEDS: LEVOTHYROXINE 0.05 MG TAB PO SCH (05:53)
[2020-08-11] MEDS: MORPHINE SULFATE 2 MG/ML SYR IVP PRN ×2 (05:53→18:22)
[2020-08-11] MEDS: INSULIN LISPRO SLIDING SCALE 100 UNITS/ML VIAL SUBQ PRN ×4 (05:54→20:15)
--- NOTE | 2020-08-11 07:30 | NUR ---
GAVE BEDSIDE REPORT TO DAY RN. PT ENDORSED IN STABLE CONDITION.
--- NOTE | 2020-08-11 07:31 | NUR ---
RECEIVED ENDORSEMENT FROM CROSSBAR SWITCH ADJUSTER, AWAKE,ALERT, ORIENTEDX4, BREATHING SPONTANEOUSLY AT ROOM AIR, NOT IN DISTRESS NOTED. WITH IV CANNULA G 20 AT RT FOREARM ON SALINE LOCK AND LEFT G 22 ON SALINE LOCK NOTED. SAFETY MEASURES IN PLACE AND CONTINUE MONITOR
[2020-08-11 08:51] LABS: MAGNESIUM 2.4 mg/dL (1.8-2.4); PHOSPHORUS 2.9 mg/dL (2.5-4.9)
[2020-08-11 08:53] LABS: BASOPHILS % (AUTO) 0.3 % (0.0-2.0); EOSINOPHILS # (AUTO) 0.1 K/uL (0-0.4); HEMATOCRIT 28.3 % (36-48); HEMOGLOBIN 9.2 g/dL (12.0-16.0); LYMPHOCYTES # (AUTO) 1.1 K/uL (2.5-16.5); LYMPHOCYTES % (AUTO) 10.1 % (20.5-51.1); MEAN CORPUSCULAR HEMOGLOBIN 30 pg (27-31); MEAN CORPUSCULAR HGB CONC 33 g/dL (33-37); MEAN CORPUSCULAR VOLUME 92.2 fL (80-94); MONOCYTES # (AUTO) 0.9 K/uL (0.8-1.0); MONOCYTES % (AUTO) 8.3 % (1.7-9.3); NEUTROPHILS # (AUTO) 8.8 K/uL (1.8-7.7); NEUTROPHILS % (AUTO) 80.3 % (42.2-75.2); PLATELET COUNT (AUTO) 269 K/uL (140-450); RED BLOOD CELL COUNT(AUTO) 3.06 MIL/uL (4.20-5.40); RED CELL DISTRIBUTION WIDTH 15.6 % (11.6-13.7); WHITE BLOOD COUNT (AUTO) 10.9 K/uL (4.8-10.8)
[2020-08-11 08:58] LABS: ANION GAP 16.4 (8-16); CARBON DIOXIDE 23.5 mmol/L (21-32); CHLORIDE 104 mmol/L (98-107); CREATININE 1.5 mg/dL (0.6-1.3); GLUCOSE 226 mg/dL (74-106); POTASSIUM 4.9 mmol/L (3.5-5.1); SODIUM SERUM 139 mmol/L (136-145); UREA NITROGEN, BLOOD 43 mg/dL (7-18)
[2020-08-11] MEDS: lisinopriL 10 MG TAB PO SCH (09:35)
[2020-08-11] MEDS: ATORVASTATIN 20 MG TAB PO SCH (09:35)
[2020-08-11] MEDS: METOPROLOL 25 MG TAB PO SCH ×2 (09:36→20:14)
[2020-08-11] MEDS: allopurinoL 100 MG TAB PO SCH (09:36)
--- NOTE | 2020-08-11 09:45 | NUR ---
COMPLAINED RT LEG PAIN, 04/07, NORCO 1 TAB ORDERED PRN AND DUE MEDICATION GIVEN
--- NOTE | 2020-08-11 12:06 | NUR ---
VITAL SIGNS TAKEN AND RECORDED,, STABLE AND DOWNGRADE TO MED/SURG TELEMETRY REMOVED
[2020-08-11] MEDS: GAUZE TP SCH (13:26)
[2020-08-11] MEDS: VANCOMYCIN 750 MG in DEXTROSE 5% 250 ML IV SCH (15:42)
[2020-08-11 16:00] VITALS: BP 118/59
--- NOTE | 2020-08-11 16:50 | NUR ---
DR. MURPHY INFORMED IN THE UNIT THAT THE PATIENT HAD EPISODE OF VISUAL HALLUCINATION, ACCORDING HIME JUST MONITOR THE PATIENT
--- NOTE | 2020-08-11 18:23 | NUR ---
COMPLAINED RT LEFT PAIN, SCREAMING NOTED, 04/07. MORPHINE 2MG IV ORDERED PRN GIVEN, KEPT COMFORTABLE TO BED
--- NOTE | 2020-08-11 18:40 | NUR ---
DRESSING CHANGED PROTOCOL AT RIGHT LEG
--- NOTE | 2020-08-11 19:19 | NUR ---
ENDORSED TO MASTER SONAR TECHNICIAN IN STABLE CONDITION FOR CONTINUITY OF CARE
--- NOTE | 2020-08-11 19:20 | NUR ---
RECEIVED BEDSIDE REPORT FROM DAY SHIFT NURSE FOR CONTINUITY OF CARE. PT IS AWAKE AND YELLING FOR A SANDWHICH. PT DID NOT WANT TO EAT DINNER PROVIDED. SANDWHICH HAS ALREADY BEEN CALLED FOR AND WAITING FOR DROP OFF TO UNIT. PT IS CONFUSED. ON RA WITH BREATHING UNLABORED. PT IS INCONTINENT WITH DRY DIAPER IN PLACE. SKIN IS NOT INTACT, WOUND ON THE RIGHT LEG AND WRAPPED WITH DRY DRESSING. DRESSING JUST CHANGED PER DAY SHIFT NURSE. IV IN THE LEFT FOREARM AND RIGHT FOREARM SALINE LOCKED. PLAN OF CARE DISCUSSED. PT IS STABLE.
--- NOTE | 2020-08-11 19:45 | NUR ---
PT RECEIVED SANDWHICH AND DRINK. PT IS NO LONGER YELLING. PT IS CONTENT.
[2020-08-11 20:00] VITALS: BP 129/62
[2020-08-11] MEDS: rOPINIRole 1 MG TAB PO SCH (20:14)
--- NOTE | 2020-08-11 21:45 | NUR ---
ROUNDED ON PT. SHE IS ASLEEP IN SEMI FOWLERS POSITION. NO DISTRESS OR PAIN NOTED. BLANKETS IN PLACE AND IV IS SALINE LOCKED. WILL CONTINUE TO MONITOR.
--- NOTE | 2020-08-11 22:59 | NUR ---
PT IS AWAKE AND ASKING FOR MORE BLANKETS. PT WAS GIVEN BLANKETS AND SHE IS BACK TO SLEEP. NEEDS HAVE BEEN MET.
[2020-08-12] MEDS: MORPHINE SULFATE 2 MG/ML SYR IVP PRN (00:19)
--- NOTE | 2020-08-12 00:36 | NUR ---
PT WAS CHANGED AND REPOSITIONED. PT VOIDED IN DIAPER. YELLOW URINE, NORMAL ODOR. PT WAS SCREAMING AND STATES SHE HAS PAIN IN HER LEG AT A SCALE OF 8/10. PT WAS GIVEN MORPHINE. PRIOR TO ADMINISTRATION BP WAS 118/88. WILL MONITOR PAIN.
--- NOTE | 2020-08-12 02:30 | NUR ---
PT IS SHOUTING ALOUD, UNCERTAIN WHAT SHE NEEDS. PT STATES SHE IS NOT IN PAIN. PT WAS GIVEN ANOTHER BLANKET AND A SNACK. PT IS BACK TO BED AND APPEARS TO BE CALM. WILL CONTINUE TO MONITOR.
[2020-08-12 04:00] VITALS: BP 118/69
--- NOTE | 2020-08-12 04:30 | NUR ---
PT IS AWAKE AND IS BEING CHANGED SHE VOIDED IN HER DIAPER. LINENS WERE CHANGED. PT ASSISTED WITH TURNING. NO DISTRESS NOTED. PT IS STABLE.
[2020-08-12] MEDS: LEVOTHYROXINE 0.05 MG TAB PO SCH (05:43)
[2020-08-12] MEDS: BLOOD GLUCOSE MONITORING 1 DEV DEV FS SCH ×4 (05:44→21:57)
[2020-08-12] MEDS: INSULIN LISPRO SLIDING SCALE 100 UNITS/ML VIAL SUBQ PRN ×4 (05:44→21:59)
--- NOTE | 2020-08-12 06:00 | NUR ---
PT IS AWAKE AND CONFUSED. TALKING ABOUT TAKING CARE OF HER SON. PT DOES NOT SPEAK APPROPRIATELY. LAYING COMFORTABLY WITH NO DISTRESS NOTED.
--- NOTE | 2020-08-12 07:25 | NUR ---
RECEIVED ENDORSEMENT FROM COMMERCIAL DRIVER'S LICENSE DRIVER, AWAKE,ALERT, ORIENTEDX4, BREATHING SPONTANEOUSLY AT ROOM AIR, NOT IN DISTRESS NOTED. WITH IV CANNULA G 20 AT RT FOREARM ON SALINE LOCK AND LEFT G 22 ON SALINE LOCK NOTED. WITH DRY AND INTACT DRESSING AT RT LEG S/P INCISION AND DRAINAGE NOTED. SAFETY MEASURES IN PLACE AND CONTINUE MONITOR
--- NOTE | 2020-08-12 07:30 | NUR ---
ENDORSED PT TO DAY SHIFT NURSE FOR CONTINUITY OF CARE. PT IS STABLE. PLAN OF CARE DISCUSSED.
[2020-08-12] MEDS: lisinopriL 10 MG TAB PO SCH (09:11)
[2020-08-12] MEDS: allopurinoL 100 MG TAB PO SCH (09:11)
[2020-08-12] MEDS: ATORVASTATIN 20 MG TAB PO SCH (09:12)
[2020-08-12] MEDS: METOPROLOL 25 MG TAB PO SCH ×2 (09:12→21:49)
--- NOTE | 2020-08-12 09:12 | NUR ---
FULLY AWAKE AND ALERT, SCREAMING AND CONFUSED, DUE MEDICATION AND ATIVAN 1MG IV ORDERED PRN GIVEN, SAFETY MEASURES IN PLACE CONTINUE MONITOR,
[2020-08-12] MEDS: LORazepam 2 MG/ML VIAL IM/IVP PRN (09:13)
--- NOTE | 2020-08-12 12:55 | NUR ---
AWAKE AND REFUSED TO EAT LUNCH
[2020-08-12] MEDS: GAUZE TP SCH (13:25)
--- NOTE | 2020-08-12 15:15 | NUR ---
ASLEEP ON BED, NOT IN DISTRESS NOTED, DUE VANCOMYCIN IV GIVEN
[2020-08-12] MEDS: VANCOMYCIN 750 MG in DEXTROSE 5% 250 ML IV SCH (15:29)
[2020-08-12 16:00] VITALS: BP 122/44
--- NOTE | 2020-08-12 16:15 | NUR ---
PATIENT APPARENTLY NOTED ON THE FLOOR SITTING DOWN, DR. MURPHY MADE AWARE AND ORDERED FOR BILATERAL HIP XRAY, VITAL SIGNS STABLE , FULLY AWAKE AND ALERT, HEAD TO TOE ASSESSMENT DONE, NO FURTHER INJURY NOTED AND DENIES PAIN NOTED, VITAL SIGNS STABLE.
--- NOTE | 2020-08-12 18:01 | NUR ---
RETAIL TIRE SALES MANAGER CAME BUT THE PATIENT REFUSED, DR MURPHY MADE AWARE.
--- NOTE | 2020-08-12 19:25 | NUR ---
ENDORSED TO FLANGING ROLL OPERATOR IN STABLE CONDITION FOR CONTINUITY OF CARE
--- NOTE | 2020-08-12 19:30 | NUR ---
RECEIVED BEDSIDE REPORT FROM DAY SHIFT NURSE FOR CONTINUITY OF CARE. PT IS AWAKE, A&OX2. ON RA WITH BREATHING UNLABORED. PT IS INCONTINENT WITH DRY DIAPER IN PLACE. SKIN IS NOT INTACT, RIGHT LEG S/P I&D. DRESSING DRY AND INTACT. IV IS IN THE LEFT FOREARM 22 GAUGE AND RIGHT FOREARM 20 GAUGE SALINE LOCKED. AWAITING PLACEMENT FOR TAPERING MACHINE OPERATOR CARE CENTER. PLAN OF CARE DISCUSSED. PT FELL PER DAY SHIFT NURSE. PT REFUSED XRAY AFTER FALL. PT IS STABLE AT THIS TIME. PLAN OF CARE DISCUSSED. WILL CONTINUE TO MONITOR.
[2020-08-12 20:00] VITALS: BP 142/58
--- NOTE | 2020-08-12 21:00 | NUR ---
PT IS REPOSITIONED IN BED. PILLOWS PLACED TO ELEVATE EXTREMITIES AND OFFLOAD PRESSURE. PT IS STABLE. NO DISTRESS NOTED.
--- NOTE | 2020-08-12 21:30 | NUR ---
PT VOIDED AND WAS CHANGED. LINENS WERE ALSO CHANGED. PT REPOSITIONED.
[2020-08-12] MEDS: rOPINIRole 1 MG TAB PO SCH (21:50)
--- NOTE | 2020-08-12 22:00 | NUR ---
ENCOURAGED PT TO DO XRAY AND WAS EDUCATED ON IMPORTANCE OF RECEIVING THIS IMAGING. PT VERBALIZED UNDERSTANDING AND AGREED TO DO XRAY OF HIPS. XRAY COMPLETED.
--- NOTE | 2020-08-12 23:47 | NUR ---
PT IS SLEEPING. NO PAIN OR DISTRESS NOTED. BED IS IN THE LOWEST POSITION AND CALL LIGHT IS WITHIN REACH. IV'S ARE SALINE LOCKED. PT CLOSE TO NURSE'S STATION FOR OBSERVATION AND FREQUENT ROUNDING. WILL CONTINUE TO MONITOR.
--- NOTE | 2020-08-13 01:00 | NUR ---
PT VOIDED AGAIN AND DIAPER WAS CHANGED. PT WAS REPOSITIONED. SHE TOLERATED THIS WELL.
[2020-08-13] MEDS: HYDROcodone/APAP 5/325 MG 1 TAB TAB PO PRN (01:55)
--- NOTE | 2020-08-13 01:55 | NUR ---
PT IS STATING SHE HAS PAIN IN THE LEG. PT SAYS IT IS A STABBING AND ACHING PAIN. PAIN IS AT A SCALE OF 6/10. PT WAS GIVEN NORCO ORDERED FOR MODERATE PAIN. WILL MONITOR PAIN.
[2020-08-13] MEDS: LORazepam 2 MG/ML VIAL IM/IVP PRN (02:53)
--- NOTE | 2020-08-13 02:53 | NUR ---
PT WAS GIVEN ATIVAN PRN ANXIETY BECAUSE PT APPEARED TO BE VERY ANXIOUS. PT WAS SCREAMING AND YELLING THAT SHE WANTED TO GO TO BED. WHEN ATTEMPTING TO CALM PT DOWN SHE YELLED LOUDER. BP WAS 122/77 PRIOR TO ADMINISTRATION. WILL MONITOR PT.
[2020-08-13 04:00] VITALS: BP 138/99
--- NOTE | 2020-08-13 04:10 | NUR ---
WRAPPED PT'S IV'S AND REWRAPPED WOUND. PT TOLERATED THIS WELL. DID NOT WANT PT TO PULL OUT IV SHE WAS PULLING OFF GOWN AND BLANKETS. PT WAS CHANGED SHE VOIDED IN DIAPER AND REPOSITIONED. PT IS BACK TO BED.
--- NOTE | 2020-08-13 05:16 | NUR ---
SOFT WRIST RESTRAINTS WERE PLACED ON PT ORDERED BY DOCTOR MURPHY. PT WAS PULLING AT LINES AND PULLING OFF WOUND DRESSING. EVERYTHING WAS RE-WRAPPED AND INTACT. PT IS NOW CALM AND ATTENTION WAS REDIRECTED. PT IS FALLING BACK ASLEEP. WILL MONITOR.
[2020-08-13] MEDS: BLOOD GLUCOSE MONITORING 1 DEV DEV FS SCH ×4 (05:59→21:09)
[2020-08-13] MEDS: LEVOTHYROXINE 0.05 MG TAB PO SCH (05:59)
[2020-08-13] MEDS: INSULIN LISPRO SLIDING SCALE 100 UNITS/ML VIAL SUBQ PRN ×3 (06:00→17:41)
--- NOTE | 2020-08-13 07:30 | NUR ---
ENDORSED PT TO DAY SHIFT NURSE FOR CONTINUITY OF CARE. PT IS STABLE AT THIS TIME. RESTRAINTS IN PLACE. PT DOES NOT APPEAR TO BE IN ANY DISTRESS SHE IS SLEEPING. PLAN OF CARE DISCUSSED.
--- NOTE | 2020-08-13 07:35 | NUR ---
RECEIVED REPORT FROM NIGHTSHIFT NURSE. PT RESTING IN BED. ABLE TO MAKE NEEDS KNOWN. RESPIRATIONS EVEN AND UNLABORED WITH NO SOB OR RESPIRATORY DISTRESS. SKIN WARM AND DRY TO TOUCH. IV SITE IN LFA 22G AND RFA 20G IS CLEAN, DRY, AND INTACT. SAFETY MEASURES IN PLACE. WILL CONTINUE TO MONITOR
[2020-08-13 08:00] VITALS: BP 138/81
[2020-08-13] MEDS: allopurinoL 100 MG TAB PO SCH (09:01)
[2020-08-13] MEDS: lisinopriL 10 MG TAB PO SCH (09:01)
[2020-08-13] MEDS: ATORVASTATIN 20 MG TAB PO SCH (09:01)
[2020-08-13] MEDS: METOPROLOL 25 MG TAB PO SCH ×2 (09:02→21:45)
--- NOTE | 2020-08-13 09:05 | NUR ---
ADMINISTERED SCHED MED PRESCRIBED PER MD ORDER. MEDICATION EDUCATION PERFORMED. PT CONFUSED AND UNABLE TO VERBALIZE UNDERSTANDING. SAFETY MEASURES IN PLACE. WILL CONTINUE TO MONITOR
--- NOTE | 2020-08-13 11:30 | NUR ---
PT BLOOD SUGAR IS 220. PRN INSULIN TO BE ADMINISTERED PRESCRIBED PER MD ORDER WITH NEXT MEAL. SAFETY MEASURES IN PLACE WILL CONTINUE TO MONITOR
--- NOTE | 2020-08-13 11:37 | NUR ---
(08/13/20) RD FOLLOW UP COMPLETED PLEASE REFER TO NUTRITION PROGRESS NOTE UNDER CARE ACTIVITY FOR ESTIMATED NUTRITION NEEDS. RD RECOMMENDATIONS: 1. CONTINUE MECHANICAL SOFT CCHO 60GM DIET TOLERATED 2. CONTINUE GLUCERNA BID. THIS WILL PROVIDE 440 KCAL AND 20 GM PROTEIN TO HELP MEET EST NEEDS. 3. RECOMMEND VITAMIN C 200 MG BID AND MULTIVITAMIN DAILY 4. ENCOURAGE PO INTAKE >75% 5. RD TO FOLLOW-UP 3-5 DAYS, MODERATE RISK MARLENA ANDRADE MS, RDN
--- NOTE | 2020-08-13 12:39 | NUR ---
ADMINISTERED SCHED MED PRESCRIBED PER MD ORDER. MEDICATION EDUCATION PERFORMED. PT VERBALIZED UNDERSTANDING. SAFETY MEASURES IN PLACE. WILL CONTINUE TO MONITOR
[2020-08-13] MEDS: GAUZE TP SCH (13:00)
--- NOTE | 2020-08-13 14:56 | NUR ---
ADMINISTERED SCHED MED PRESCRIBED PER MD ORDER. MEDICATION EDUCATION PERFORMED. PT CONFUSED AND UNABLE TO VERBALIZE UNDERSTANDING. SAFETY MEASURES IN PLACE. WILL CONTINUE TO MONITOR
[2020-08-13] MEDS ORDERED: VANCOMYCIN 750 MG in DEXTROSE 5% 250 ML IV SCH (15:00)
[2020-08-13 16:00] VITALS: BP 145/45
--- NOTE | 2020-08-13 16:30 | NUR ---
PT BLOOD SUGAR IS 204. PRN INSULIN TO BE ADMINISTERED PRESCRIBED PER MD ORDER WITH NEXT MEAL. SAFETY MEASURES IN PLACE WILL CONTINUE TO MONITOR
--- NOTE | 2020-08-13 17:43 | NUR ---
ADMINISTERED PRN INSULIN PRESCRIBED PER MD ORDER. MEDICATION EDUCATION PERFORMED. PT CONFUSED AND UNABLE TO VERBALIZE UNDERSTANDING. SAFETY MEASURES IN PLACE. WILL CONTINUE TO MONITOR
--- NOTE | 2020-08-13 19:25 | NUR ---
ENDORSED TO NIGHTSHIFT FOR CONTINUITY OF CARE. PT IS STABLE
[2020-08-13 20:00] VITALS: BP 130/76
[2020-08-13] MEDS: rOPINIRole 1 MG TAB PO SCH (21:45)
[2020-08-14] MEDS: LORazepam 2 MG/ML VIAL IM/IVP PRN ×3 (00:10→23:20)
[2020-08-14 04:00] VITALS: BP 143/70
[2020-08-14] MEDS: INSULIN LISPRO SLIDING SCALE 100 UNITS/ML VIAL SUBQ PRN ×4 (06:15→21:03)
--- NOTE | 2020-08-14 07:25 | NUR ---
HANDOFF REPORT RECEIVED FROM PRE BILLING CLINICIAN RN. POC REVIEWED AND DISCUSSED. ON BILATERAL SOFT WRIST RESTRAINTS. RELEASED MADE TO CHECK CIRCULATION. NO CYANOSIS NOTED. PALPABLE PULSES TO DISTAL EXTREMITIES. KEPT PT ON FALL PRECAUTION. NO SOB. ON RA. AFEBRILE. CALL LIGHT WITHIN REACH.
[2020-08-14] MEDS: BLOOD GLUCOSE MONITORING 1 DEV DEV FS SCH ×4 (07:30→21:02)
[2020-08-14 07:39] LABS: BASOPHILS % (AUTO) 0.2 % (0.0-2.0); EOSINOPHILS # (AUTO) 0.1 K/uL (0-0.4); EOSINOPHILS % (AUTO) 0.6 % (0.0-4.0); HEMATOCRIT 31.2 % (36-48); HEMOGLOBIN 10.1 g/dL (12.0-16.0); LYMPHOCYTES # (AUTO) 1.2 K/uL (2.5-16.5); MEAN CORPUSCULAR HEMOGLOBIN 30 pg (27-31); MEAN CORPUSCULAR HGB CONC 32 g/dL (33-37); MEAN CORPUSCULAR VOLUME 92.3 fL (80-94); MONOCYTES # (AUTO) 0.9 K/uL (0.8-1.0); MONOCYTES % (AUTO) 7.2 % (1.7-9.3); NEUTROPHILS # (AUTO) 10.8 K/uL (1.8-7.7); PLATELET COUNT (AUTO) 242 K/uL (140-450); RED BLOOD CELL COUNT(AUTO) 3.38 MIL/uL (4.20-5.40); RED CELL DISTRIBUTION WIDTH 15.3 % (11.6-13.7); WHITE BLOOD COUNT (AUTO) 13.1 K/uL (4.8-10.8)
[2020-08-14 07:58] LABS: ANION GAP 16.4 (8-16); CARBON DIOXIDE 23.8 mmol/L (21-32); CHLORIDE 104 mmol/L (98-107); CREATININE 1.2 mg/dL (0.6-1.3); GLUCOSE 211 mg/dL (74-106); POTASSIUM 4.2 mmol/L (3.5-5.1); SODIUM SERUM 140 mmol/L (136-145); UREA NITROGEN, BLOOD 24 mg/dL (7-18)
[2020-08-14] MEDS: lisinopriL 10 MG TAB PO SCH (09:19)
[2020-08-14] MEDS: ATORVASTATIN 20 MG TAB PO SCH (09:19)
[2020-08-14] MEDS: METOPROLOL 25 MG TAB PO SCH ×2 (09:19→21:02)
[2020-08-14] MEDS: allopurinoL 100 MG TAB PO SCH (09:19)
[2020-08-14 09:22] LABS: LYMPHOCYTES % (AUTO) 9.2 % (20.5-51.1); NEUTROPHILS % (AUTO) 82.8 % (42.2-75.2)
--- NOTE | 2020-08-14 12:00 | NUR ---
PT IS RESTLESS. KEPT PT BILATERAL RESTRAINTS. ON CLOSE MONITOR [id number] FALL. NO S/S OF DISTRESS NOTED.
[2020-08-14] MEDS: GAUZE TP SCH (13:28)
[2020-08-14 16:00] VITALS: BP 122/59
--- NOTE | 2020-08-14 16:00 | NUR ---
PT IS STABLE. NO CHANGE OF CONDITION. WILL CONTINUE TO MONITOR.
--- NOTE | 2020-08-14 19:30 | NUR ---
ENDORSED PATIENT TO CLINICAL NURSING COORDINATOR RN. POC REVIEWED. NO CHANGES OF CONDITION.
--- NOTE | 2020-08-14 19:30 | NUR ---
RECEIVED PATIENT FROM AM SHIFT NURSE FOR CONTINUITY OF CARE. PATIENT IS CONFUSED, ABLE TO MAKE SIMPLE NEEDS KNOWN. RESPIRATIONS EVEN, UNLABORED. SKIN WARM, DRY TO TOUCH. IV SITE TO RIGHT AC 22G PATENT/INTACT, INFUSING FLUIDS WELL. NO C/O PAIN. NO S/S ACUTE DISTRESS. ABDOMEN SOFT, NONTENDER, NONDISTENDED. BOWEL SOUNDS ACTIVE X4 QUADRANTS. PATIENT IS INCONTINENT OF B/B. PLAN OF CARE DISCUSSED. SAFETY PRECAUTIONS IN PLACE. SITTER AT BEDSIDE. Addendum: 08/15/20 at 0219 by Danelle Dos Santos RN AMEND: SALINE LOCK TO RIGHT FOREARM 22G AND NO SITTER AT BEDSIDE. LEFT LOWER LEG HEMATOMA NOTED.
[2020-08-14 20:00] VITALS: BP_SYST 122; BP_SYST 153; BP_DIAS 59; BP_DIAS 68
[2020-08-14] MEDS: rOPINIRole 1 MG TAB PO SCH (21:02)
--- NOTE | 2020-08-14 21:10 | NUR ---
DUE MEDS GIVEN. PATIENT IS QUIET AND NOT ATTEMPTING TO GET OUT OF BED. FREQUENT ROUNDS BY ALL STAFF.
--- NOTE | 2020-08-14 23:00 | NUR ---
PATIENT ASLEEP. NO S/S ACUTE DISTRESS. FREQUENT ROUNDS BY ALL STAFF.
[2020-08-15] MEDS: ZOLPIDEM 5 MG TAB PO PRN (00:15)
--- NOTE | 2020-08-15 01:00 | NUR ---
MADE ROUNDS. PATIENT ASLEEP. NO S/S ACUTE DISTRESS. FREQUENT ROUNDS BY ALL STAFF.
--- NOTE | 2020-08-15 03:30 | NUR ---
PATIENT IS YELLING AND ATTEMPTING TO GET OUT OF BED. REORIENTED PATIENT. FREQUENT ROUNDS BY ALL STAFF. PATIENT IS SAFELY IN THE BED AT THIS TIME.
[2020-08-15 04:00] VITALS: BP_SYST 146; BP_SYST 153; BP_DIAS 68; BP_DIAS 76
--- NOTE | 2020-08-15 05:00 | NUR ---
INCONTINENT CARE RENDERED WITH EVENT ATTENDANT AT BEDSIDE. NO S/S ACUTE DISTRESS. FREQUENT ROUNDS BY ALL STAFF.
[2020-08-15] MEDS: LEVOTHYROXINE 0.05 MG TAB PO SCH ×2 (06:26→06:27)
[2020-08-15] MEDS: BLOOD GLUCOSE MONITORING 1 DEV DEV FS SCH ×3 (06:34→16:49)
--- NOTE | 2020-08-15 07:10 | NUR ---
RECEIVED REPORT FROM NIGHT NURSE FOR CONTINUITY OF CARE. PT IS ASLEEP. PT IS STABLE, PT HAS RFA 22G SALINE LOCK. PT IS S/P LEFT LEG I&D. SAFETY MEASURES IN PLACE, WILL CONTINUE TO MONITOR.
--- NOTE | 2020-08-15 07:10 | NUR ---
ENDORSED PATIENT TO AM SHIFT NURSE FOR CONTINUITY OF CARE.
[2020-08-15 08:00] VITALS: BP 153/58
[2020-08-15 08:33] LABS: BASOPHILS % (AUTO) 0.6 % (0.0-2.0); EOSINOPHILS # (AUTO) 0.2 K/uL (0-0.4); EOSINOPHILS % (AUTO) 2.2 % (0.0-4.0); HEMATOCRIT 28.1 % (36-48); HEMOGLOBIN 9.3 g/dL (12.0-16.0); LYMPHOCYTES # (AUTO) 1.3 K/uL (2.5-16.5); LYMPHOCYTES % (AUTO) 15.8 % (20.5-51.1); MEAN CORPUSCULAR HEMOGLOBIN 30 pg (27-31); MEAN CORPUSCULAR HGB CONC 33 g/dL (33-37); MONOCYTES # (AUTO) 0.7 K/uL (0.8-1.0); MONOCYTES % (AUTO) 8.5 % (1.7-9.3); NEUTROPHILS % (AUTO) 72.9 % (42.2-75.2); PLATELET COUNT (AUTO) 247 K/uL (140-450); RED BLOOD CELL COUNT(AUTO) 3.08 MIL/uL (4.20-5.40); RED CELL DISTRIBUTION WIDTH 15.6 % (11.6-13.7); WHITE BLOOD COUNT (AUTO) 8.2 K/uL (4.8-10.8)
[2020-08-15 08:42] LABS: CARBON DIOXIDE 24.1 mmol/L (21-32); CHLORIDE 107 mmol/L (98-107); CREATININE 1.1 mg/dL (0.6-1.3); GLUCOSE 145 mg/dL (74-106); POTASSIUM 4.1 mmol/L (3.5-5.1); SODIUM SERUM 142 mmol/L (136-145); UREA NITROGEN, BLOOD 21 mg/dL (7-18)
[2020-08-15] MEDS: lisinopriL 10 MG TAB PO SCH (10:08)
[2020-08-15] MEDS: METOPROLOL 25 MG TAB PO SCH (10:08)
[2020-08-15] MEDS: allopurinoL 100 MG TAB PO SCH (10:09)
[2020-08-15] MEDS: ATORVASTATIN 20 MG TAB PO SCH (10:09)
--- NOTE | 2020-08-15 10:12 | NUR ---
ADMINISTERED SCHEDULED MEDICATION, MEDICATION EDUCATION PROVIDED. PT TOLERATED WELL. PT IS STABLE, WILL CONTINUE TO MONITOR.
--- NOTE | 2020-08-15 10:40 | NUR ---
WOUND CARE RE-EVALUATION NOTE: RLE S/P DEBRIDEMENT SURGICAL WOUND [id number],90 % WOUND BED GRANULATING TISSUE, 10 % SCATTERED BROWN SLOUGH TISSUE. MOIST AND NO ODOR, WOUND EDGE FLAT, TANISHA-WOUND MULTIPLE DRY BLISTERS, TANISHA WOUND SKIN TO LEFT OF WOUND BED 13X5CM BLACK STABLE NECROTIC TISSUE, DRY. NO ODOR. POC AND RECOMMENDATION DISCUSSED WITH COMFORT FILLER. PER PT. SHE REFUSED SKIN RAJAT. RECOMMENDATION: -CLEANSE RLE WITH NS. PAT DRY APPLY THERAHONEY DRESSING SHEET TO WOUND BED, AND BETADINE SOLUTION PAINT TO BLACK NECROTIC AREA, COVER WITH ABD PAD. WRAP WITH KERLIX ROLLS,DRESSING CHANGE 2X/WEEK ON SATURDAY AND SATURDAY.
[2020-08-15] MEDS: GAUZE TP SCH (13:00)
--- NOTE | 2020-08-15 16:21 | NUR ---
CALLED AND GAVE REPORT TO PIEDAD AT [facility], PER PIEDAD PT FLU AND PNA ARE UP TO DATE.
--- NOTE | 2020-08-15 17:05 | NUR ---
PT DISCHARGED TO [facility]. PT TRANSPORTED VIA [facility], PT STABLE.
== END 2020-08-15 17:05 | DRG 264 ==
LOC: MED 15:08 → MTU 21:31
PROVIDERS: ADMIT Family Medicine; ATTEND Family Medicine
PROC: 30233N1 Transfusion of Nonautologous Red Blood Cells into Peripheral Vein, Percutaneous Approach (ICD-10-PCS; 2020-08-05)
PROC: 0JBN0ZZ Excision of Right Lower Leg Subcutaneous Tissue and Fascia, Open Approach (ICD-10-PCS; principal; 2020-08-09 12:00)
DX: E11.52 Type 2 diabetes mellitus with diabetic peripheral angiopathy with gangrene (principal); N17.0 Acute kidney failure with tubular necrosis; E44.0 Moderate protein-calorie malnutrition; I48.20 Chronic atrial fibrillation, unspecified; L03.115 Cellulitis of right lower limb; I13.0 Hypertensive heart and chronic kidney disease with heart failure and stage 1 through stage 4 chronic kidney disease, or unspecified chronic kidney disease; S80.11XA Contusion of right lower leg, initial encounter; D64.9 Anemia, unspecified; E11.22 Type 2 diabetes mellitus with diabetic chronic kidney disease; N18.9 Chronic kidney disease, unspecified; E03.9 Hypothyroidism, unspecified; Z20.822 Contact with and (suspected) exposure to COVID-19; K57.30 Diverticulosis of large intestine without perforation or abscess without bleeding; E11.65 Type 2 diabetes mellitus with hyperglycemia; M10.9 Gout, unspecified; W01.0XXA Fall on same level from slipping, tripping and stumbling without subsequent striking against object, initial encounter; I50.9 Heart failure, unspecified; E78.5 Hyperlipidemia, unspecified; Z86.73 Personal history of transient ischemic attack (TIA), and cerebral infarction without residual deficits; Z90.710 Acquired absence of both cervix and uterus; Y93.89 Activity, other specified; Y99.8 Other external cause status; Z79.899 Other long term (current) drug therapy; Z79.01 Long term (current) use of anticoagulants; Z80.3 Family history of malignant neoplasm of breast; Z82.49 Family history of ischemic heart disease and other diseases of the circulatory system; Z68.20 Body mass index [BMI] 20.0-20.9, adult; Y92.129 Unspecified place in nursing home as the place of occurrence of the external cause
CPT/HCPCS: 36415; 70450; 71045; 72125; 72192; 73700; 80048; 80053; 80202; 81001; 82150; 82607; 82728; 82746; 82948; 83036; 83540; 83605; 83690; 83735; 83880; 84100; 84439; 84443; 84484; 85025; 85045; 85610; 85730; 86140; 86886; 86900; 86901; 86920; 87040; 87081; 87086; 88304; 93005; 93926; 93971; 96372; 97110; 97112; 97116; 97161-GP; 97530; 99285; J0696; J1170; J1200; J1815; J2060; J2250; J2270; J2916; J3010; J3370; J7030; J7060; P9016